=== PATIENT | female | born 1950 | race African-American/Black ===

== ENCOUNTER 2021-06-15 12:10 | Emergency (ER) | payer OTHER, SELFPAY ==
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
[2021-06-15 12:16] VITALS: BP 147/96; PULSE 97; RESP 18; TEMP 36.6; O2SAT 100; BMI 31.4
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
--- NOTE | 2021-06-15 14:04 | PC.NURSE ---
PT EATING SNACK, DRINKING FLUIDS, MET WITH RENAL MEDICINE PHYSICIANTHOMAS.
== END 2021-06-15 14:24 | disposition home or self-care (01) ==
PROVIDERS: Emergency Provider Emergency Medicine; PCP Internal Medicine Geriatric Medicine
DX: S20.219A Contusion of unspecified front wall of thorax, initial encounter (principal); V47.5XXA Car driver injured in collision with fixed or stationary object in traffic accident, initial encounter; W22.11XA Striking against or struck by driver side automobile airbag, initial encounter; Y93.89 Activity, other specified; Y92.481 Parking lot as the place of occurrence of the external cause; Y99.9 Unspecified external cause status
CPT/HCPCS: 71046; 99283

== ENCOUNTER 2023-03-29 13:33 | Outpatient (AMB) | payer MEDICARE, SELFPAY ==
--- NOTE | 2023-03-29 13:51 | A.OFFVIS_ITS ---
Intake Vital Signs 3 03/29/23 14:00 Height 5 ft Weight 180 lb 2 oz BMI 35.2 BP 160/76 H Blood Pressure Location Lt brachial Position Sitting Respiration 16 Pulse 73 Pulse Source Pulse Oximeter Pulse Oximetry (%) 95 Oxygen Delivery Method Room Air Intake Visit Reasons: Low back pain radiating to left leg Complaint Analyst Required: Yes Complaint Analyst Name: King [id number] Allergies aspirin Adverse Reaction (Unknown, Verified 03/29/23 13:51) itching HPI HPI Comments 2 History of Present Illness0 Details Gabby is a very pleasant 72-year-old female who presents to the office today for evaluation and management of her left lower back pain. Patient reports she has been suffering with this pain for greater than 1 year. She has a history of this pain over 10 years ago where she received steroid injections with relief. She fell approximately 1 year ago and the pain returned. Patient describes the pain as 5/10, worse with movement. She completed physical therapy approximately 2 months ago without relief of her symptoms. She has been taking nonsteroidal anti-inflammatory medications that provided minimal relief. She has tried baclofen that helped only a little bit. Her doctor recently prescribed her gabapentin but she started forgetting things after taking it so she stopped. Patient denies red flag symptoms including no loss of bowel bladder or saddle anesthesia. In terms of muscle damage condition is described as shooting, cramping, spasming, numb, throbbing, stabbing and sharp. Pain is negatively impacting patient's sleep, walking and overall functioning. She had a recent MRI, results were reviewed, as per below. Review of Systems Const All systems reviewed & are unremarkable except as noted in HPI and below Physical Exam Vital Signs: Last Vital Signs Pulse 73 03/29/23 14:00 Resp 16 03/29/23 14:00 BP 160/76 H 03/29/23 14:00 Pulse Ox 95 03/29/23 14:00 Oxygen Delivery Method Room Air 03/29/23 14:00 BMI result Body Mass Index 35.2 General: awake, alert, oriented. Answers questions appropriately. Fully engaged in examination. Skin: warm, dry, intact HEENT: Normocephalic. Hearing intact. Cardiac: External chest normal in appearance. Respiratory: No cough, audible wheezing or stridor. Abdomen: without gross distension. MS: No obvious swelling or deformities. Able to stand on bilateral tiptoes and bilateral heels.? Able to transition from sit to stand unassisted. Ambulates with bilaterally normal heel strike and toe off SLR with and without dorsiflexion positive on left Tenderness to palpation left lumbar paraspinal muscles Nontender to palpation over PSIS Alyssa positive on left Neurological: Oriented to person, place, time and situation. Thought process intact. Psychiatric: Appropriate mood and affect. Good judgment and insight. Results Reviewed Results Reviewed: Assessment & Plan Assessment & Plan (1) Lumbar radiculopathy: Code(s): M54.16 - Radiculopathy, lumbar region (2) Lumbar facet arthropathy: Code(s): M47.816 - Spondylosis without myelopathy or radiculopathy, lumbar region Plan Gabby is a very pleasant 72-year-old female who presented to the office today for evaluation and management of her left lower back pain. History, physical exam and provocative testing most consistent with left-sided lumbar radiculopathy. Patient has exhausted conservative treatment including physical therapy, NSAIDs, muscle relaxer and gabapentin. Discussed options for treatment including diagnostic interventional testing, epidural steroid injections, peripheral nerve stimulation with Sprint, RFA and more permanent neuromodulation. Will schedule patient for fluoroscopy guided left L4 L5 transforaminal epidural steroid injection with local anesthetic. All questions and concerns have been answered and patient agrees with the plan. Follow up after injections and sooner if needed. Coding Level of Care Code New Pt Level 4 (78629) Diagnoses Lumbar radiculopathy M54.16 Lumbar facet arthropathy M47.816
[2023-03-29 14:00] VITALS: BP 160/76; PULSE 73; RESP 16; O2SAT 95; BMI 35.2
== END 2023-03-29 14:10 | disposition home or self-care (01) ==
PROVIDERS: PCP Internal Medicine Geriatric Medicine; Visit Provider Registered Nurse Emergency
DX: M54.16 Radiculopathy, lumbar region (principal); M47.816 Spondylosis without myelopathy or radiculopathy, lumbar region
CPT/HCPCS: 99204

== ENCOUNTER → 2023-03-29 13:33 | Outpatient (BNVA) | payer MEDICARE, SELFPAY | PROVIDERS: PCP Internal Medicine Geriatric Medicine; Visit Provider Registered Nurse Emergency ==

== ENCOUNTER 2023-04-23 06:06 | Outpatient (REF) | payer MEDICARE, SELFPAY ==
--- NOTE | ~2023-04-23 | FL_ITS ---
EXAMINATION: XR FLUOROSCOPY WITH IMAGES CLINICAL INFORMATION: Radiculopathy, lumbar region. COMPARISON: None available. TECHNIQUE: Fluoroscopy Supervised By: Dr. Christopher Oglesby. Fluoroscopy Time: 0.3 minutes. Cumulative Dose: 8.5 mGy. DAP: 0.147 Gycm2. Images: 1. FINDINGS: Image demonstrates needle placement and contrast injection adjacent to the left lateral L4 vertebrae FL/FL guidance in treatment room IMPRESSION: Fluoroscopy guidance for pain management procedure
== END 2023-04-23 06:07 | disposition home or self-care (01) ==
LOC: CF 06:06
PROVIDERS: Visit Provider Anesthesiology
DX: M54.16 Radiculopathy, lumbar region (principal); M47.816 Spondylosis without myelopathy or radiculopathy, lumbar region
CPT/HCPCS: 64483; J3301

== ENCOUNTER 2023-04-23 10:41 | Outpatient (AMB) | payer MEDICARE, SELFPAY ==
[2023-04-23 10:47] VITALS: BP 106/84; BP 116/82; PULSE 54; PULSE 75; RESP 14; O2SAT 96; O2SAT 99; BMI 35.2
--- NOTE | 2023-04-23 10:47 | MHC.OFFVIS ---
Intake Vital Signs 04/23/23 10:47 04/23/23 10:47 Height 5 ft 5 ft Weight 180 lb 180 lb BMI 35.2 35.2 BP 106/84 116/82 Blood Pressure Location Lt brachial Lt brachial Position Sitting Sitting Respiration 14 14 Pulse 54 75 Pulse Source Pulse Oximeter Pulse Oximeter Pulse Oximetry (%) 96 99 Oxygen Delivery Method Room Air Room Air Comment pre-op post-op Intake Visit Reasons: LEFT L4, L5 TFESI Allergies aspirin Adverse Reaction (Unknown, Verified 04/23/23 10:48) itching Physical Exam Vital Signs: Last Vital Signs Pulse 75 04/23/23 10:47 Resp 14 04/23/23 10:47 BP 116/82 04/23/23 10:47 Pulse Ox 99 04/23/23 10:47 Oxygen Delivery Method Room Air 04/23/23 10:47 BMI result Body Mass Index 35.2 Assessment & Plan Assessment & Plan (1) Lumbar radiculopathy: Code(s): M54.16 - Radiculopathy, lumbar region Plan: Transforaminal epidural steroid injection L4-5 on the left. THE PATIENT CAME TO THE OPERATING ROOM AFTER OBTAINING INFORMED CONSENT. THE RISKS OF THE PROCEDURE WERE DELINEATED THE RISK OF BLEEDING INFECTION PERIPHERAL NERVE DAMAGE EPIDURAL HEMATOMA EPIDURAL ABSCESS AND OTHER UNSPECIFIED RISKS. THE PATIENT WAS POSITIONED PRONE ON THE OPERATING TABLE . TIME-OUT WAS OBTAINED DELINEATING CORRECT SIDE AND SITE OF THE PROCEDURE, PATIENT NAME AND DATE OF , NEED OF THE ANTIBIOTIC, RISK OF FIRE. The PATIENT PARTICIPATED IN THE TIME OUT PROCEDURE. LUMBAR AREA OF THE PATIENT WAS PREPPED WITH CHLORAPREP AND DRAPED WITH STERILE DRAPES, STERILELY DRAPED C-ARM WAS BROUGHT OVER THE OPERATING FIELD AND SQ PICTURE OF L4 VERTEBRA WAS DELINEATED ON THE SCREEN. Very extensive spurring was noted espesially on the left side of the vertebral column. C-ARM WAS TILTED 20? TO THE left SIDE AND PICTURE OF THE left PEDICLE L3 VERTEBRA WAS OBTAINED ON THE SCREEN. 3 MM BELOW THE LOWEST POINT OF THE PEDICLE PROJECTION TO THE SKIN WAS CHOSEN A STARTING POINT OF THE INJECTION. 22 GAUGE 5 IN SPINAL NEEDLE WAS INSERTED THROUGH THE SKIN AND STARTED TO ADVANCE TO THE FORAMINA IN ANTERIOR POSTERIOR, OBLIQUE AND LATERAL VIEWS IN TUNNEL VISION FASHION. Multiple spurs made the advancement OF THE NEEDLE very difficult. WHEN THE NEEDLE ON THE AP VIEW REACHED THE SILHOUETTE OF THE SPINAL COLUMN INJECTION OF THE CONTRAST PERFORMED DELINEATING ANTERIOR EPIDURAL SPREAD OF THE CONTRAST. AFTER THAT TREATMENT SOLUTION CONTAINING 3 ML OF PRESERVATIVE-FREE LIDOCAINE 1% MIXED WITH KENALOG 40 MG WAS INJECTED INTO THE NEEDLE. UPON COMPLETION OF THE INJECTION THE NEEDLE WAS REMOVED AND STERILE DRESSING WAS APPLIED. PATIENT TOLERATED PROCEDURE WELL SHE WAS TAKEN OUTSIDE OF THE OPERATING ROOM TO PACU WHERE SHE RECOVERED UNEVENTFULLY. SHE WENT HOME WITHOUT IMMEDIATE COMPLICATIONS. (2) Lumbar facet arthropathy: Code(s): M47.816 - Spondylosis without myelopathy or radiculopathy, lumbar region Plan Gabby is a very pleasant 72-year-old female who presented to the office today for evaluation and management of her left lower back pain. History, physical exam and provocative testing most consistent with left-sided lumbar radiculopathy. Patient has exhausted conservative treatment including physical therapy, NSAIDs, muscle relaxer and gabapentin. Discussed options for treatment including diagnostic interventional testing, epidural steroid injections, peripheral nerve stimulation with Sprint, RFA and more permanent neuromodulation. Will schedule patient for fluoroscopy guided left L4 L5 transforaminal epidural steroid injection with local anesthetic. All questions and concerns have been answered and patient agrees with the plan. Follow up after injections and sooner if needed. Orders: Orders FL guidance in treatment room Today M54.16 - Radiculopathy, lumbar region Coding Level of Care Code Procedure Only Diagnoses Lumbar radiculopathy M54.16 Lumbar facet arthropathy M47.816
== END 2023-04-23 11:22 | disposition home or self-care (01) ==
LOC: HO.PMCPRC 10:41
PROVIDERS: PCP Internal Medicine Geriatric Medicine; Visit Provider Anesthesiology
DX: M54.16 Radiculopathy, lumbar region (principal)
CPT/HCPCS: 64483

== ENCOUNTER 2023-05-21 09:59 | Outpatient (AMB) | payer MEDICARE, SELFPAY ==
[2023-05-21 10:09] VITALS: BP 127/60; PULSE 85; RESP 16; O2SAT 98; BMI 34.1
--- NOTE | 2023-05-21 10:09 | A.OFFVIS_ITS ---
Intake Vital Signs 3 05/21/23 10:09 Height 5 ft Weight 174 lb 8 oz BMI 34.1 BP 127/60 Blood Pressure Location Lt brachial Position Sitting Respiration 16 Pulse 85 Pulse Source Pulse Oximeter Pulse Oximetry (%) 98 Oxygen Delivery Method Room Air Intake Visit Reasons: LEFT L4, L5 TFESI/04/23/23 Allergies aspirin Adverse Reaction (Unknown, Verified 05/21/23 10:09) itching HPI HPI Comments 2 History of Present Illness0 Details Gabby presents back to the office today for follow up 1 month s/p left L4-L5 TFESI 04/23/23. Patient reports 70% pain relief with improvement in function and mobility. She is able to do things around the house like cooking and cleaning without pain increase. She does report some pain with extensive cleaning such as mopping the floor but this resolves with rest. She knows now to go slowly with certain tasks to prevent pain increase. She is sleeping well and doing activities she enjoys. Prior: Gabby is a very pleasant 72-year-old female who presents to the office today for evaluation and management of her left lower back pain. Patient reports she has been suffering with this pain for greater than 1 year. She has a history of this pain over 10 years ago where she received steroid injections with relief. She fell approximately 1 year ago and the pain returned. Patient describes the pain as 5/10, worse with movement. She completed physical therapy approximately 2 months ago without relief of her symptoms. She has been taking nonsteroidal anti-inflammatory medications that provided minimal relief. She has tried baclofen that helped only a little bit. Her doctor recently prescribed her gabapentin but she started forgetting things after taking it so she stopped. Patient denies red flag symptoms including no loss of bowel bladder or saddle anesthesia. In terms of muscle damage condition is described as shooting, cramping, spasming, numb, throbbing, stabbing and sharp. Pain is negatively impacting patient's sleep, walking and overall functioning. She had a recent MRI, results were reviewed, as per below. Review of Systems Const All systems reviewed & are unremarkable except as noted in HPI and below Physical Exam Vital Signs: Last Vital Signs Pulse 85 05/21/23 10:09 Resp 16 05/21/23 10:09 BP 127/60 05/21/23 10:09 Pulse Ox 98 05/21/23 10:09 Oxygen Delivery Method Room Air 05/21/23 10:09 BMI result Body Mass Index 34.1 General: awake, alert, oriented. Answers questions appropriately. Fully engaged in examination. Skin: warm, dry, intact HEENT: Normocephalic. Hearing intact. Cardiac: External chest normal in appearance. Respiratory: No cough, audible wheezing or stridor. Abdomen: without gross distension. MS: No obvious swelling or deformities. Able to stand on bilateral tiptoes and bilateral heels.? Able to transition from sit to stand unassisted. Ambulates with bilaterally normal heel strike and toe off Neurological: Oriented to person, place, time and situation. Thought process intact. Psychiatric: Appropriate mood and affect. Good judgment and insight. Results Reviewed Results Reviewed: Assessment & Plan Assessment & Plan (1) Lumbar radiculopathy: Code(s): M54.16 - Radiculopathy, lumbar region (2) Lumbar facet arthropathy: Code(s): M47.816 - Spondylosis without myelopathy or radiculopathy, lumbar region Porter Pierre is a very pleasant 72-year-old female who presented back to the office today for follow up s/p fluoroscopy guided left L4 L5 transforaminal epidural steroid injection with local anesthetic performed 04/23/23. Patient reports 70% relief since the injection with improvement in function and mobility. Patient advised injections may be repeated every 3 months, she will call to schedule a follow up to repeat when pain returns. All questions and concerns were answered during the visit, follow up in 2 months for repeat therapeutic injection, sooner if needed. Coding Level of Care Code Est Pt Level 3 (32766) Diagnoses Lumbar radiculopathy M54.16 Lumbar facet arthropathy M47.816
== END 2023-05-21 10:20 | disposition home or self-care (01) ==
PROVIDERS: PCP Internal Medicine Geriatric Medicine; Visit Provider Registered Nurse Emergency
DX: M54.16 Radiculopathy, lumbar region (principal); M47.816 Spondylosis without myelopathy or radiculopathy, lumbar region
CPT/HCPCS: 99213

== ENCOUNTER → 2023-05-21 09:59 | Outpatient (BNVA) | payer MEDICARE, SELFPAY | PROVIDERS: PCP Internal Medicine Geriatric Medicine; Visit Provider Registered Nurse Emergency | DX: M54.16 Radiculopathy, lumbar region (principal); M47.816 Spondylosis without myelopathy or radiculopathy, lumbar region | CPT/HCPCS: 99212 ==

== ENCOUNTER 2023-11-25 10:07 | Outpatient (REF) | payer MEDICARE, SELFPAY ==
[2023-11-25 11:21] LABS: MANUAL DIFF FLAG NO
[2023-11-25 11:43] LABS: Basophils Absolute Auto 0.1 X10*3/uL (0.0-0.2); Basophils Percent Auto 0.7 % (0-2); Eosinophils Absolute Auto 0.1 X10*3/uL (0.0-0.4); Eosinophils Percent Auto 1.1 % (0-4); Hematocrit 42.1 % (37.0-47.0); Hemoglobin 12.9 g/dl (12.0-16.0); Imm Gran Abs Auto 0.02 X10*3/uL (0.00-0.03); Imm Gran Pct Auto 0.3 % (0.0-0.4); Lymphocytes Absolute Auto 1.8 X10*3/uL (1.2-4.9); Lymphocytes Percent Auto 24.5 % (20-40); Mean Corpuscular HGB Conc 30.6 g/dl (31.0-35.0); Mean Corpuscular Hemoglobin 24.8 pg (27.0-33.0); Mean Corpuscular Volume 80.8 fL (80.0-98.0); Mean Platelet Volume 10.1 fL (9.4-12.3); Monocytes Absolute Auto 0.7 X10*3/uL (0.1-1.2); Monocytes Percent Auto 9.5 % (2-11); Neutrophils Absolute Auto 4.8 x10*3/uL (2.0-8.3); Neutrophils Percent Auto 63.9 % (45-73); Platelet Count 268 X10*3/uL (160-400); Red Blood Count 5.21 X10*6/uL (4.20-5.50); Red Cell Distribution Width 13.3 % (11.0-16.0); White Blood Count 7.5 X10*3/uL (4.8-10.8)
[2023-11-25 12:17] LABS: Alanine Aminotransferase 17 U/L (0-31); Albumin Level 4.1 g/dL (3.5-5.0); Alkaline Phosphatase 112 U/L (39-117); Anion Gap 14 (12-20); Aspartate Amino Transferase 18 U/L (5-31); Bilirubin Total 0.7 mg/dL (0.0-1.0); Blood Urea Nitrogen 17 mg/dL (9-16); Calcium 9.7 mg/dL (8.4-10.2); Carbon Dioxide 27 mmol/L (22-29); Chloride 106 mmol/L (96-108); Cholesterol 145 mg/dL (<200); Estimated Glomerular Filt Rate > 60; Glucose Random 107 mg/dL (60-115); HDL Cholesterol 60 mg/dL (>40); LDL Cholesterol Calculated 75 mg/dL (<100); Potassium 4.2 mmol/L (3.3-5.1); Sodium 143 mmol/L (135-145); Total Protein 7.2 g/dL (6.5-8.0); Triglycerides 53 mg/dL (<150)
== END 2023-11-25 10:08 | disposition home or self-care (01) ==
LOC: HO.HHCLNP 10:07
PROVIDERS: Visit Provider Internal Medicine Geriatric Medicine
DX: I20.89 Other forms of angina pectoris (principal)
CPT/HCPCS: 36415; 80053; 80061; 85025

== ENCOUNTER 2024-11-10 10:40 | Outpatient (REF) | payer MEDICARE, SELFPAY ==
[2024-11-10 11:26] LABS: MANUAL DIFF FLAG NO
[2024-11-10 11:43] LABS: Basophils Absolute Auto 0.1 X10*3/uL (0.0-0.2); Basophils Percent Auto 0.7 % (0-2); Eosinophils Absolute Auto 0.1 X10*3/uL (0.0-0.4); Hematocrit 42.6 % (37.0-47.0); Imm Gran Abs Auto 0.03 X10*3/uL (0.00-0.03); Imm Gran Pct Auto 0.4 % (0.0-0.4); Lymphocytes Absolute Auto 1.9 X10*3/uL (1.2-4.9); Lymphocytes Percent Auto 27.8 % (20-40); Mean Corpuscular HGB Conc 30.5 g/dl (31.0-35.0); Mean Corpuscular Hemoglobin 24.5 pg (27.0-33.0); Mean Corpuscular Volume 80.2 fL (80.0-98.0); Mean Platelet Volume 10.7 fL (9.4-12.3); Monocytes Absolute Auto 0.6 X10*3/uL (0.1-1.2); Monocytes Percent Auto 9.4 % (2-11); Neutrophils Absolute Auto 4.1 x10*3/uL (2.0-8.3); Neutrophils Percent Auto 60.7 % (45-73); Platelet Count 240 X10*3/uL (160-400); Red Blood Count 5.31 X10*6/uL (4.20-5.50); Red Cell Distribution Width 13.5 % (11.0-16.0); White Blood Count 6.8 X10*3/uL (4.8-10.8)
[2024-11-10 12:17] LABS: Alanine Aminotransferase 20 U/L (0-31); Alkaline Phosphatase 117 U/L (39-117); Anion Gap 12 (12-20); Aspartate Amino Transferase 26 U/L (5-31); Bilirubin Total 0.9 mg/dL (0.0-1.0); Blood Urea Nitrogen 15 mg/dL (9-16); Calcium 9.3 mg/dL (8.4-10.2); Carbon Dioxide 27 mmol/L (22-29); Chloride 107 mmol/L (96-108); Cholesterol 149 mg/dL (<200); Estimated Glomerular Filt Rate > 60; Glucose Random 122 mg/dL (60-115); HDL Cholesterol 63 mg/dL (>40); LDL Cholesterol Calculated 71 mg/dL (<100); Potassium 4.6 mmol/L (3.3-5.1); Sodium 141 mmol/L (135-145); Total Protein 7.1 g/dL (6.5-8.0); Triglycerides 75 mg/dL (<150)
--- OUTSIDE RECORDS SUMMARY | 2024-11-10 12:19 | XMS_ITS | Encounter Summary ---
Author Organization [employer] [facility] Address [address] [place] [address] [address] [place] [address] Care Team Providers Care Tutoring Assistant Name Role Phone Name, Ciro LUCAS Primary Care Provider [phone] Encounter Details Date Type Department Care Team ([facility] Contact Info) Description 12/14/2022 Abstract [facility] [address] [place] [address] [phone] Name, MD Ciro [address] [place] [address] [phone] Social History Tobacco Use Types Packs/Day Years Used Date Smoking Tobacco: Every Day Cigarettes Smokeless Tobacco: Never Alcohol Use Standard Drinks/Week Comments Yes 0 (1 standard drink = 0.6 oz pur e alcohol) rarely Depression Answer Date Recorded Patient Health Questionnaire-2 Score 0 09/18/2022 Comments Unknown Sex and Gender Information Value Date Recorded Sex Assigned at Female 05/14/2022 10:29 AM EDT Legal Sex Female 10:29 AM EDT Gender Identity Female 05/14/2022 10:29 AM EDT Sexual Orientation Choose not to disclose 2021 10:29 AM EDT documented as of this encounter Plan of Treatment Upcoming Encounters Date Type Department Care Team (Late Contact Info) Description 11/25/2024 11:30 AM EDT Telemedicine [facility] [address] [place] [address] [phone] documented as of this encounter Visit Diagnoses Not on filedocumented in this encounter Care Teams Tutoring Assistant Relationship Specialty Start Date End Date Name, MD Ciro [address] [place] [address] [phone] PCP - General Family Medicine 09/12/15 documented as of this encounter
--- OUTSIDE RECORDS SUMMARY | 2024-11-10 12:19 | XMS_ITS | Clinical Summary ---
Author Organization [employer] Address [address] [place] [address] [address] [place] [address] Care Team Providers Care Clinical Nutritionist Name Role Phone Name, Ciro LUCAS Primary Care Provider [phone] Allergies Active Allergy Reactions Criticality Noted Date Comments Aspirin Itching Medium 11/01/2015 Medications clotrimazole-bet amethasone (Lotrisone) cream Apply once a day at bedtime to the affected skin 45 g 3 3 Active cholecalciferol (D3-1000) 25 MCG (1000 UT) tablet TAKE 1 TABLET BY MOUTH EVERY DAY 90 tablet 1 4 Active albuterol 108 (90 Base) MCG/ACT inhaler Inhale 2 puffs Every 4-6 hours as needed for wheezing or shortness of breath. 18 g 11 4 06/24/20 25 Active fluticasone furoate (Arnuity Ellipta) 100 MCG/ACT inhaler Inhale 1 puff Once per day. Rinse mouth with water after use to reduce aftertaste and incidence of candidiasis. Do not swallow. 1 each 11 4 06/24/20 25 Active metFORMIN (Glucophage) 500 MG tablet TAKE 1 TABLET BY MOUTH WITH BREAKFAST AND EVENING MEAL 180 tablet 3 4 Active atorvastatin (Lipitor) 40 MG tablet TAKE 1 TABLET BY MOUTH EVERY MORNING 90 tablet 3 5 Active metoprolol tartrate (Lopressor) 25 MG tablet TOME 1 TABLETA POR VIA ORAL DOS VECES AL EVA 180 tablet 3 5 Active montelukast (Singulair) 10 MG tabletIndication s:Asthma, unspecified asthma severity, unspecified whether complicated, unspecified whether persistent TOME 1 TABLETA POR VIA ORAL TODOS [place] ACOSTARSE 90 tablet 1 5 Active omeprazole OTC (PriLOSEC OTC) 20 MG EC tabletIndication s:Non-cardiac chest pain Take 1 tablet (20 mg) by mouth before breakfast. Do not crush, chew, or split. 30 tablet 11 5 11/10/19 26 Active methocarbamol (Robaxin) 750 MG tabletIndication s:Low back pain radiating to left leg Take 1 tablet (750 mg) by mouth if needed each day for muscle spasms for up to 10 days. 30 tablet 5 11/20/19 25 Active Blood Pressure kit Use once a day 1 kit 5 Active Active Problems Problem Noted Date Diagnosed Date Arthritis 03/12/2023 Overview (03/12/2023): hands/neck Asthma 03/12/2023 Back pain 03/12/2023 Low vitamin D level 07/13/2022 Calcification of coronary artery 07/13/2022 Pulmonary nodule 07/13/2022 Overview (09/18/2022): CT 2021 showed: Intrathoracic lymph nodes calcification and calcified pulmonary nodules perhaps sequela of remote granulomatous infection. Negative Quantiferon for TB Follows with [facility] pulmonary [facility] Asymptomatic No further work up recommended Osteopenia of multiple sites 04/19/2019 Prediabetes 03/24/2019 Vitamin D deficiency 03/24/2019 Depressive disorder 03/14/2018 Constipation 07/23/2017 Low back pain radiating to left leg 07/23/2017 Hip pain 02/22/2017 Peripheral venous insufficiency 02/29/2016 Restless legs 11/01/2015 Obesity 11/01/2015 Mild intermittent asthma 11/01/2015 Osteoarthritis of knee 11/01/2015 Encounters Date Type Department Care Team Description 11/09/2024 2:45 PM EDT Office Visit [facility] [address] [place] [address] Name, MD Ciro Prediabetes (Primary Dx); Low back pain radiating to left leg; Non-cardiac chest pain; Gastroesophageal reflux disease, unspecified whether esophagitis present 11/09/2024 Travel 11/06/2024 Telephone [facility] [address] [place] [address] Ciro Banks MD CHART PREP 10/28/2024 Patient Outreach [facility] [address] [facility] [place] [address] Ciro Banks MD Pre-visit Planning ([facility] unable to reach [facility]) 09/27/2024 Refill [facility] [address] [place] [address] Ciro Banks MD Asthma, unspecified asthma severity, unspecified whether complicated, unspecified whether persistent 09/20/2024 Refill [facility] [address] [place] [address] Ciro Banks MD from Last 3 Months Immunizations Name Administration Dates Next Due Moderna Covid-19 Vaccine 12+ 09/24/2020,08/27/19 21 Pneumococcal Conjugate PCV 13 07/23/2017, 016 Pneumococcal Polysaccharide PPSV23 09/28/2021, Tdap 05/29/2016 Social History Tobacco Use Types Packs/Day Years Used Date Smoking Tobacco: Every Day Cigarettes Smokeless Tobacco: Never Tobacco Cessation:Ready to Q uit: Not Asked; Counseling Given: Not Answered Alcohol Use Standard Drinks/Week Comments Yes 0 (1 standard drink = 0.6 oz pur e alcohol) occassional Depression Answer Date Recorded Patient Health Questionnaire-9 Score 1 06/24/2024 Patient Health Questionnaire-9 Score 1 06/24/2024 Last PHQ-9: Questionnaire Data Not on file 1 08/25/2023 Housing Stability Answer Date Recorded What is your housing situation today? I have lety oconnell 06/24/[address] you li ve. Do you have problems with any of the following? None of the above 06/24/2024 Food Insecurity Answer Date Recorded Within the past 12 months, y ou worried that your food would run out before you got money to buy more: Not on file 2023 Within the past 12 months,th e food you bought just didn't last and you didn't have enough money to get more: Sometimes True 06/24/2024 Transportation Answer Date Recorded In the past 12 months, has l ack of transportation kept you from medical appts, meetings, work or from getting things needed for daily living? No 06/24/2024 Utilities Answer Date Recorded In the past 12 months, has t he electric, gas, oil or water company threatened to shut off services in your home? I am not sure 06/24/2024 Depression Answer Date Recorded Patient Health Questionnaire-2 Score 0 06/24/2024 Internet Access Answer Date Recorded Internet Access Q1 Yes 06/24/2024 Internet Access Q2 Not on file 06/24/2024 Comments Unknown Sex and Gender Information Value Date Recorded Sex Assigned at Female 05/14/2022 10:29 AM EDT Legal Sex Female 10:29 AM EDT Gender Identity Female 05/14/2022 10:29 AM EDT Sexual Orientation Choose not to disclose 2021 10:29 AM EDT Last Filed Vital Signs Vital Sign Reading Time Taken Comments Blood Pressure 141/89 11/09/2024 3:19 PM EDT Pulse 87 11/09/2024 2:58 PM EDT Temperature 36.8 ??C (98.2 ??F) 11/09/2024 2:58 PM ED T Respiratory Rate 18 11/09/2024 2:58 PM EDT Oxygen Saturation 97% 11/09/2024 2:58 PM EDT Inhaled Oxygen Concentration - - Weight 81.1 kg (178 lb 12.8 oz) 11/09/2024 2:58 PM EDT Height 157.5 cm (5' 2 ) 11/09/2024 2:58 PM EDT Body Mass Index 32.7 11/09/2024 2:58 PM EDT Plan of Treatment Upcoming Encounters Date Type Department Care Team (Late st Contact Info) Description 11/25/2024 11:30 AM EDT Telemedicine [facility] [address] [place] [address] Health Maintenance Due Date Last Done Comments CT Colonography 1950 FIT DNA/Cologuard 1950 Sigmoidoscopy 1950 Hepatitis C Screening 1968 Zoster Vaccines (1 of 2) 2000 RSV Patients and Patients Aged 60 years or older (1 - Risk 60-74 years 1-dose series) 2010 FIT 04/29/2021 04/29/2020 FOBT 04/29/2021 04/29/2020 SDOH Screening 09/19/2023 09/18/2022 COVID-19 Vaccine ( season) 2024 05/08/2021, 09/24/2020, 08/27/2020 Influenza Vaccine (#1) 2024 Mammogram 10/13/2024 10/14/2023, 10/10/2022 Alcohol/Substance Use Screening 06/24/2025 06/24/2024 Depression Screening 06/24/2025 06/24/2024, 06/24/20 24 Diabetes: Hemoglobin A1C 06/24/2025 024, 09/20/2022, 03/16/2022, Additional history exists Tobacco Screening 11/09/2025 11/09/2024 DTaP/Tdap/Td Vaccines (2 - Td or Tdap) 05/29/2026 05/29/2016 Lipid Panel 11/24/2028 11/10/2024, 051 09/2023, 09/20/2022, Additional history exists Colonoscopy 04/27/2032 04/27/2022 Colorectal Cancer Screening 04/27/2032 Pneumococcal Vaccine: 50+ Years Completed 09/28/2021, 07/23/2017, 09/12/2015, Additional history exists HIB Vaccines Aged Out No longer eligi ble based on patient's age to complete this topic HPV Vaccines Aged Out No longer eligi ble based on patient's age to complete this topic Hepatitis A Vaccines Aged Out No long er eligible based on patient's age to complete this topic Hepatitis B Vaccines Aged Out No long er eligible based on patient's age to complete this topic IPV Vaccines Aged Out No longer eligi ble based on patient's age to complete this topic Meningococcal Vaccine Aged Out No neda bradley eligible based on patient's age to complete this topic RSV under 20 months Aged Out No longe r eligible based on patient's age to complete this topic Rotavirus Vaccines Aged Out No longer eligible based on patient's age to complete this topic Procedures Procedure Name Priority Date/Time Associated Diagnosis Comments LIPID PANEL, STANDARD Routine 11/10/2024 10:42 AM EDT Prediabetes COMPREHENSIVE METABOLIC PANEL Routine 11/10/2024 10:42 AM EDT Prediabetes CBC WITH AUTO DIFFERENTIAL Routine 11/10/2024 10:42 AM EDT Prediabetes POCT GLYCATED HEMOGLOBIN, TOTAL Routine 06/24/2024 2:19 PM EST Prediabetes HM MAMMOGRAPHY Routine 10/14/2023 HM COLONOSCOPY Routine 04/27/2022 from Last 3 Months or Most Recently Relevant to Health Maintenance Results * (ABNORMAL) CBC auto differential (11/10/2024 10:42 AM EDT) White Blood Count 6.8 4.8 - 10.8 X10*3/uL [facility] Red Blood Count 5.31 4.20 - 5.50 X10*6/uL [facility] Hemoglobin 13.0 12.0 - 16.0 g/dl [facility] Hematocrit 42.6 37.0 - 47.0 % [facility] Mean Corpuscular Volume 80.2 80.0 - 98.0 fL [facility] Mean Corpuscular Hemoglobin 24.5(L) 27.0 - 33.0 pg [facility] Mean Corpuscular HGB Conc 30.5(L) 31.0 - 35.0 g/dl [facility] Red Cell Distribution Width 13.5 11.0 - 16.0 % [facility] Platelet Count 240 160 - 400 X10*3/uL [facility] Mean Platelet Volume 10.7 9.4 - 12.3 fL [facility] Neutrophils Percent Auto 60.7 45 - 73 % [facility] Imm Gran Pct Auto 0.4 0.0 - 0.4 % [facility] Lymphocytes Percent Auto 27.8 20 - 40 % [facility] Monocytes Percent Auto 9.4 2 - 11 % [facility] Eosinophils Percent Auto 1.0 0 - 4 % [facility] Basophils Percent Auto 0.7 0 - 2 % [facility] NRBC Pct Auto 0.0 0.0 - 0.2 /100WBC [facility] Neutrophils Absolute Auto 4.1 2.0 - 8.3 x10*3/uL [facility] Imm Gran Abs Auto 0.03 0.00 - 0.03 X10*3/uL [facility] Lymphocytes Absolute Auto 1.9 1.2 - 4.9 X10*3/uL [facility] Monocytes Absolute Auto 0.6 0.1 - 1.2 X10*3/uL [facility] Eosinophils Absolute Auto 0.1 0.0 - 0.4 X10*3/uL [facility] Basophils Absolute Auto 0.1 0.0 - 0.2 X10*3/uL [facility] NRBC Abs Auto 0.000 0.0 - 0.012 X10*3/uL [facility] Blood Venous blood specimen / Unknown 11/10/2024 10:42 AM EDT 11/10/2024 11:22 AM EDT us Ciro Name MD LAB BLOOD ORDERABLES Final Resul t [facility] [address] [place] [phone] * Lipid Panel, Standard (11/10/2024 10:42 AM EDT) Triglycerides 75 <150 mg/dL [facility] Comment:Desirable Triglyceri de: less than 150 mg/dLBorderline High Triglyceride 150-199 mg/dLHigh Triglyceride: 200-499 mg/dLVery High Triglyceride: greater than or equal to 5OO mg/dL Cholesterol 149 <200 mg/dL [facility] Comment:Desirable Cholestero l: less than 200 mg/dLBorderline High Cholesterol: 200-239 mg/dLHigh Cholesterol: greater than 239 mg/dL LDL Cholesterol Calculated 71 <100 mg/dL [facility] Comment:Desirable LDL: less than 100 mg/dLNear Optimal/Above Optimal LDL: 110- 129 mg/dLBorderline High LDL: 130-159 mg/dLHigh LDL: 160-189 mg/dLVery High LDL: greater than or equal to 190 mg/dL HDL Cholesterol 63 >40 mg/dL [facility] Comment:Desirable HDL: great er than 40 mg/dL Note: This HDL assay may give artificially low results in patients with liver disease. Blood Venous blood specimen / Unknown 11/10/2024 10:42 AM EDT 11/10/2024 11:22 AM EDT us Ciro Name MD LAB BLOOD ORDERABLES Final Resul t [facility] [address] [place] [address] [phone] * (ABNORMAL) Comprehensive Metabolic Panel (11/10/2024 10:42 AM EDT) Sodium 141 135 - 145 mmol/L [facility] Potassium 4.6 3.3 - 5.1 mmol/L [facility] Chloride 107 96 - 108 mmol/L [facility] Carbon Dioxide 27 22 - 29 mmol/L [facility] Anion Gap 12 12 - 20 [facility] Urea Nitrogen (BUN) 15 9 - 16 mg/dL [facility] Creatinine, Serum 0.77 0.5 - 1.4 mg/dL [facility] Estimated Glomerular Filt Rate >60 [facility] Comment:Chronic Kidney Disea se: Estimated GFR < 60 mL/min/1.71q4Iyrnby Kidney Disease: Estimated GFR < 15 mL/min/1.73m2 Glucose 122(H) 60 - 115 mg/dL [facility] Calcium 9.3 8.4 - 10.2 mg/dL [facility] Bilirubin, Total 0.9 0.0 - 1.0 mg/dL [facility] Aspartate Amino Transferase 26 5 - 31 U/L [facility] Alanine Aminotransferase 20 0 - 31 U/L [facility] Total Protein 7.1 6.5 - 8.0 g/dL [facility] Albumin Level 4.0 3.5 - 5.0 g/dL [facility] Alkaline Phosphatase 117 39 - 117 U/L [facility] Blood Venous blood specimen / Unknown 11/10/2024 10:42 AM EDT 11/10/2024 11:22 AM EDT us Ciro Banks MD LAB BLOOD ORDERABLES Final Resul t [facility] [address] [place] [phone] * (ABNORMAL) POCT HGB A1C (06/24/2024 2:19 PM EST) Hemoglobin A1C 6.1(A) 4.0 - 6.0 % QC Media Lot # [id number] Lot# Expiration Date [id number] Blood 06/24/2024 2:19 PM EST Result [facility] Ciro Banks MD POINT OF CARE TEST ENTER/EDIT OR DERABLES Final Result * (ABNORMAL) Mammography (10/14/2023) Mammogram BIRADS 2 Normal, Abnormal, BIRADS 1 , BIRADS 2 Anatomical Region Laterality Modality Other Result [facility] us Ciro Banks MD HEALTH MAINTENANCE Final Result * Colonoscopy (04/27/2022) Colonoscopy performed Comment:cologuard negative Result [facility] Provider HEALTH MAINTENANCE Final Result from Last 3 Months or Most Recently Relevant to Health Maintenance Insurance [facility] MEDICARE ADVANTAGE [facility] FULL Care Teams Clinical Nutritionist Relationship Specialty Start Date End Date Name, MD Ciro [address] [place] [phone] PCP - General Family Medicine 09/12/15
--- OUTSIDE RECORDS SUMMARY | 2024-11-10 12:19 | XMS_ITS | Encounter Summary ---
Author Organization [employer] Address [address] [facility] [address] [place] [address] Care Team Providers Care Leather Stripping Machine Operator Name Role Phone Name, Ciro LUCAS Primary Care Provider [phone] Reason for Visit * Reason Onset Date Comments CHART PREP 11/06/2024 Encounter Details Date Type Department Care Team ([facility] st Contact Info) Description 11/06/2024 Telephone [facility] [address] [place] [address] Name, MD Ciro [address] [place], [place] [phone] CHART PREP Social History Tobacco Use Types Packs/Day Years [...] AM EDT documented as of this encounter Miscellaneous Notes * Telephone Encounter - Sarah Hughes [place] - 11/06/2024 11:46 AM EDT Chart Prep Labs: not applicable Images: not applicable Referrals: not applicable Vaccines due: yes RSV Zoster Screenings: mammogram Overdue care gaps: SDOH, Oral health screening, and Disability screen documented in this encounter Plan of Treatment Upcoming Encounters Date Type Department Care Team (Late st Contact Info) Description 11/25/2024 11:30 AM EDT Telemedicine [facility] [address] [place] [address] documented as of this encounter Visit Diagnoses Not on filedocumented in this encounter Additional Health Concerns Assessment Noted Time PHQ-9 Depression Total Score: 1 06/24/20 24 2:43 PM EST documented as of this encounter Care Teams Leather Stripping Machine Operator Relationship Specialty Start Date End Date Name, MD Ciro [address] [place] [address] PCP - General Family Medicine 09/12/15 documented as of this encounter
--- OUTSIDE RECORDS SUMMARY | 2024-11-10 12:19 | XMS_ITS | Clinical Summary ---
Author Organization [facility] Address [address] [place] [phone] Phone Care Team Providers Care Metal Riveting Machine Operator Name Role Phone Name, Ciro LUCAS Primary Care Provider [phone] Allergies Active Allergy Reactions Criticality Noted Date Comments Aspirin Hives 05/25/2024 Medications methocarbamoL (ROBAXIN) 750 mg tablet Take 1 tablet (750 mg total) by mouth 1 (one) time each day in the evening for 15 days. 15 each 05/25/2024 Active Active Problems No known active problems Surgical History Surgery Date Site/Laterality Comments TUBAL LIGATION PROCEDURE: HISTORICAL TUBAL LIGATION Medical History Medical History Date Comments Osteoarthrosis, unspecified whether generalized or localized, lower leg 04/05/2015 DX:Osteoarthrosis, unspecified whether generalized or localized, lower leg Family History Medical History Relation Name Comments Autoimmune disease Neg Hx Breast cancer Neg Hx Colon cancer Neg Hx Coronary artery disease Neg Hx Diabetes Neg Hx Heart attack Neg Hx Heart failure Neg Hx Hyperlipidemia Neg Hx Hypertension Neg Hx Mental illness Neg Hx Prostate cancer Neg Hx Sleep apnea Neg Hx Thyroid disease Neg Hx Relation Name Status Comments Brother 1 Alive Brother 2 Alive Brother 3 Alive Daughter 1 Alive Daughter 2 Alive Father AIDS Mother GSW Sister 1 Alive DM Sister 2 Alive Sister 3 Alive Son Alive Social History Tobacco Use Types Packs/Day Years Used Date Smoking Tobacco: Some Days Smokeless Tobacco: Never Alcohol Use Standard Drinks/Week Comments Yes 0 (1 standard drink = 0.6 oz pur e alcohol) Comments Unknown Sex and Gender Information Value Date Recorded Sex Assigned at Female 05/25/2024 2:01 PM EST Legal Sex Female 9:05 AM EST Gender Identity Female 05/25/2024 2:01 PM EST Sexual Orientation Straight 05/25/2024 2: 01 PM EST Obstetrics History Last Filed Vital Signs Vital Sign Reading Time Taken Comments Blood Pressure 124/60 05/25/2024 12:10 PM EST Pulse 95 05/25/2024 12:10 PM EST Temperature 36.7 ??C (98 ??F) 05/25/2024 12:10 PM EST Respiratory Rate 16 05/25/2024 12:10 PM EST Oxygen Saturation 100% 05/25/2024 12:10 PM EST Inhaled Oxygen Concentration - - Weight 79.4 kg (175 lb) 05/25/2024 12:10 PM EST Height 157.5 cm (5' 2 ) 05/25/2024 12:10 PM EST Body Mass Index 32.01 05/25/2024 12:10 PM EST Plan of Treatment Health Maintenance Due Date Last Done Comments Zoster Vaccines (1 of 2) 2000 RSV Immunization Adult Patients (1 - Risk 60-74 years 1-dose series) 2010 Colorectal Cancer Screening: Colonoscopy 06/24/2022 Depression Screening 06/24/2022 Falls Risk Assessment 06/24/2022 Medicare Annual Wellness Visit 06/24/2022 Social Influencers of Health Screening 06/24/2022 COVID-19 Vaccine ( season) 2024 05/08/2021, 09/24/2020, 08/27/2020 Influenza Vaccine (Season Ended) 2025 Breast Cancer Screening 10/13/2025 10/14/19 24, 10/11/2022, 10/06/2021, Additional history exists DTaP,Tdap,and Td Vaccines (2 - Td or Tdap) 05/29/2026 05/29/2016 Cholesterol Screening (Lipid Panel) 11/24/2028 11/25/2023, 04/27/2020, 04/27/2020, Additional history exists Osteoporosis Screening (Bone Density Screening) 04/11/2031 04/11/2021, 04/06/2019 Hepatitis C Screening Completed 03/24/2019, 019 Pneumococcal Vaccine: 50+ Years Completed 09/28/2021, 07/23/2017, [...] on patient's age to complete this topic MMR Vaccines Aged Out No longer eligi ble based on patient's age to complete this topic Meningococcal ACWY Vaccine Aged Out N o longer eligible based on patient's age to complete this topic Meningococcal B Vaccine Aged Out No l onger eligible based on patient's age to complete this topic RSV Immunization Patients Under 20 months Aged Out No longer eligible based on patient's age to complete this topic Varicella Vaccines Aged Out No longer eligible based on patient's age to complete this topic Procedures Procedure Name Priority Date/Time Associated Diagnosis Comments [facility] SCREENING DIGITAL Routine 10/14/2023 4:30 PM EDT Encounter for screening mammogram for malignant neoplasm of breast [facility] DEXA AXIAL SKELETON Routine 04/11/2021 2:31 PM EDT Asymptomatic menopausal state from Last 3 Months or Most Recently Relevant to Health Maintenance Results * [facility] SCREENING DIGITAL (10/14/2023 4:30 PM EDT) Anatomical Region Laterality Modality Mammography 10/14/2023 10:5 8 AM EDT Narrative 10/14/2023 4:30 PM EDT [facility] Diagnostic Imaging Department [address] [place] [id number] Patient: ??GABBY SCANLON ?/Age/Sex: 1950 - 73 - F Unit#: ??[id number] ? Location/Status: ??SPDIMAM/REG CLI ? Mnemonic/Ordering Site: ??DIGSC/SPMAM Ordering Physician: ??NAME,CIRO LUCAS [facility] Screening Digital - 10/14/23 - 1137 Report Status:Signed EXAM: [facility] Screening Digital EXAM DATE AND TIME: 10/14/2023 11:37 AM HISTORY: ??Screening. COMPARISON: ??10/10/22, 10/06/21, 06/03/20 TECHNIQUE: Bilateral digital breast tomosynthesis was performed in the CC and MLO projections. Computer aided detection with Soapbox 3D 3.1 was employed. TISSUE DENSITY: b. There are scattered areas of fibroglandular density. FINDINGS: No suspicious masses, grouped microcalcifications, or areas of architectural distortion are seen. Benign rim and secretory calcifications are again seen. Vascular calcification is present. The skin is unremarkable. IMPRESSION: Stable mammographic appearance of the breasts. ??No evidence of malignancy is seen. A negative mammogram in the presence of a clinically suspicious palpable abnormality does not preclude the possibility of malignancy or alter the indications for biopsy. BI-RADS: ??Category 2: Benign RECOMMENDATION(S): 1: Routine screening mammogram BILATERAL in 1 year. Dictating Physician: ??HUONG HOGUE MD Electronically Signed by: ??HUONG HOGUE MD Dic Date/Time: ??10/14/23 1629 Sign date/Time: ??10/14/23 1630 Procedure Note Huong Hogue MD - 03/02/2024 [facility] Diagnostic Imaging Department [address] [place], [place] [id number] Patient: GABBY SCANLON /Age/Sex: 1950 - 73 - F Unit#: [id number] Location/Status: SPDIMAM/REG CLI [facility] Order[facility] Physician: CIRO INIGUEZ MD [facility] Screening Digital - 10/14/23 - 1137 Report Status:Signed EXAM: [facility] Screening Digital EXAM DATE AND TIME: 10/14/2023 11:37 AM HISTORY: Screening. COMPARISON: 10/10/22, 10/06/21, 06/03/20 TECHNIQUE: Bilateral digital breast tomosynthesis was performed in the CCand MLO projections. Computer aided detection with Soapbox 3D 3.1was employed. TISSUE DENSITY: b. There are scattered areas of fibroglandular density. FINDINGS: No suspicious masses, grouped microcalcifications, or areas ofarchitectural distortion are seen. Benign rim and secretory calcifications are againseen. Vascular calcification is present. The skin is unremarkable. IMPRESSION: Stable mammographic appearance of the breasts. No evidence of malignancyis seen. A negative mammogram in the presence of a clinically suspicious palpable abnormality does not preclude the possibility of malignancy or alter the indications for biopsy. BI-RADS: Category 2: Benign RECOMMENDATION(S): 1: Routine screening mammogram BILATERAL in 1 year. Dictating Physician: HUONG HOGUE MD Electronically Signed by: HUONG HOGUE MD Dic Date/Time: 10/14/23 1629 Sign date/Time: 10/14/23 1630 Ciro Iniguez MD IMG BI PROCEDURES Final Result * [facility] DEXA AXIAL SKELETON (04/11/2021 2:31 PM EDT) Anatomical Region Laterality Modality Mammography 04/11/2021 10:1 1 AM EDT Narrative 04/11/2021 2:31 PM EDT [facility] Diagnostic Imaging Department [address] [place] [id number] Patient: ??REGINALDOGABBY ?/Age/Sex: 1950 - 70 - F Unit#: ??[id number] ? Location/Status: ??SPDIMAM/REG CLI ? Mnemonic/Ordering Site: ??MAMDEXAAX/SPMAM Ordering Physician: ??TEA CHILDRESS TELEPHONE DIRECTORY DISTRIBUTOR DRIVER [facility] Dexa Axial Skeleton - 04/11/21 - 1111 HISTORY: Post menopausal woman with hormone depletion for screening bone densitometry. The patient is on calcium supplement with Vitamin D. TECHNIQUE: Bone densitometry is performed utilizing dual energy x-ray absorptiometry (DEXA) in the PenteoSurround unit. The lumbar spine is evaluated in the AP projection and L1 through L2 are utilized. The proximal femora are evaluated in the AP projection bilaterally. FINDINGS: AP spine: Bone mineral density: 1.058 gm/cm2 T-score: -0.9 Z-score: 0.3 Dual Femur (mean): Bone mineral density: 0.986 gm/cm2 T-score: -0.2 Z-score: 1.0 IMPRESSION: Normal bone mineralization in the lumbar spine. Normal bone mineralization in the bilateral hips. Comparison with prior examination 04/06/2019, there is increased bone mineralization within the lumbar spine and increased bone mineralization within the left proximal femur and increased bone mineralization in the right proximal femur. [id number] A report detailing these results has been enclosed. Dictating Physician: ??ROGER KING MD Electronically Signed by: ??ROGER KING MD Dic Date/Time: ??04/11/21 1429 Sign date/Time: ??04/11/21 1431 Procedure Note Roger King MD - 07/11/2022 [facility] Diagnostic Imaging Department [address] [place] [address] Patient: GABBY SCANLON D.O.B./Age/Sex: 1950 - 70 - F Unit#: [id number] [facility] CLI Mnemonic/Ordering Site: [facility] Ordering Physician: TEA CHILDRESS NP [facility] Dexa Axial Skeleton - 04/11/21 - 1111 HISTORY: Post menopausal woman with hormone depletion for screening bone densitometry. The patient is on calcium supplement with Vitamin D. TECHNIQUE: Bone densitometry is performed utilizing dual energy x-ray absorptiometry (DEXA) in the PenteoSurround unit. The lumbar spine isevaluated in the AP projection and L1 through L2 are utilized. The proximal femoraare evaluated in the AP projection bilaterally. FINDINGS: AP spine: Bone mineral density: 1.058 gm/cm2 T-score: -0.9 Z-score: 0.3 Dual Femur (mean): Bone mineral density: 0.986 gm/cm2 T-score: -0.2 Z-score: 1.0 IMPRESSION: Normal bone mineralization in the lumbar spine. Normal bone mineralization in the bilateral hips. Comparison with prior examination 04/06/2019, there is increased bone mineralization within the lumbar spine and increased bone mineralizationwithin the left proximal femur and increased bone mineralization in the rightproximal femur. [id number] A report detailing these results has been enclosed. Dictating Physician: ROGER KING MD Electronically Signed by: ROGER KING MD Dic Date/Time: 04/11/21 1429 Sign date/Time: 04/11/21 1431 Tea Childress NP IMG BI PROCEDURES Final Result from Last 3 Months or Most Recently Relevant to Health Maintenance Insurance [employer] MED[employer]ARE Care Teams Metal Riveting Machine Operator Relationship Specialty Start Date End Date Name, MD [address] [place], [place] PCP - General Internal Medicine 12/18/11
--- OUTSIDE RECORDS SUMMARY | 2024-11-10 12:19 | XMS_ITS | Encounter Summary ---
Author Organization [employer] Address [address] [facility] [address] [place] [address] Care Team Providers Care Asp Web Developer Name Role Phone Name, Ciro LUCAS Primary Care Provider [phone] Encounter Details Date Type Department Care Team (Latest Contact Info) Description 11/09/2024 Travel Social History Tobacco Use Types Packs/Day Years [...] Info) Description 11/25/2024 11:30 AM EDT Telemedicine [facility] [address] [place] [address] documented as of this encounter Visit Diagnoses Not on filedocumented in this encounter Additional Health Concerns Assessment Noted Time PHQ-9 Depression Total Score: 1 06/24/20 24 2:43 PM EST documented as of this encounter Care Teams Asp Web Developer Relationship Specialty Start Date End Date Name, MD Ciro [address] [place] [address] PCP - General Family Medicine 09/12/15 documented as of this encounter
--- OUTSIDE RECORDS SUMMARY | 2024-11-10 12:19 | XMS_ITS | Encounter Summary ---
Author Organization [employer] Address [address] [facility] [address] [place] [address] Care Team Providers Care Relocation Commissioner Name Role Phone Name, Ciro LUCAS Primary Care Provider [phone] Reason for Visit * Reason Onset Date Comments Results 02/11/2023 Encounter Details Date Type Department Care Team ([facility] st Contact Info) Description 02/11/2023 Telephone [facility] [address] [place], [place] [phone] Name, MD Ciro [address] [place] [address] Results Social History Tobacco Use Types Packs/Day Years Used Date Smoking Tobacco: Every Day Cigarettes Smokeless Tobacco: Never Alcohol Use Standard Drinks/Week Comments Yes 0 (1 standard drink = 0.6 oz pur e alcohol) occassional Depression Answer Date Recorded Patient Health Questionnaire-2 Score 0 09/18/2022 Comments Unknown Sex and Gender Information Value Date Recorded Sex Assigned at Female 05/14/2022 10:29 AM EDT Legal Sex Female 10:29 AM EDT Gender Identity Female 05/14/2022 10:29 AM EDT Sexual Orientation Choose not to disclose 2021 10:29 AM EDT documented as of this encounter Miscellaneous Notes * Telephone Encounter - Krystle Hughes RN - 02/19/2023 1:47 PM EDT Placed call to pt regarding message below. Pt informed of MRI results and provider POC. Pt requested to wait until next appt with PCP to discuss further options but stated prednisone did help with the pain and is requesting a refill in the interim until pt sees PCP. Pt informed message would be sent to PCP and would be informed of plan. * Telephone Encounter - Krystle Hughes RN - 02/12/2023 10:52 AM EDT MRI results scanned into pt chart from [facility]. Please review and advise as PCP if off. * Telephone Encounter - Sarika Mayen - 02/11/2023 11:05 AM EDT Tc from pt requesting results on MRI. Please contact pt at [phone] (Lebanese) documented in this encounter Plan of Treatment Upcoming Encounters Date Type Department Care Team (Late st Contact Info) Description 11/25/2024 11:30 AM EDT Telemedicine [facility] [address] [place] [address] documented as of this encounter Visit Diagnoses Not on filedocumented in this encounter Care Teams Relocation Commissioner Relationship Specialty Start Date End Date Name, MD Ciro [address] [place] [address] PCP - General Family Medicine 09/12/15 documented as of this encounter
--- OUTSIDE RECORDS SUMMARY | 2024-11-10 12:19 | XMS_ITS | Encounter Summary ---
Author Organization [employer] Address [address] [facility] 7[address] [place] [address] Care Team Providers Care Medical Office Scheduler Name Role Phone Name, Ciro LUCAS Primary Care Provider [phone] Reason for Visit * Reason Comments Follow-up Encounter Details Date Type Department Care Team ([facility] st Contact Info) Description 11/09/2024 2:45 PM EDT Office Visit [facility] MEDICINE [address] [place] [address] Name, MD Ciro [address] [place], [place] [phone] Prediabetes (Primary Dx); Low back pain radiating to left leg; Non-cardiac chest pain; Gastroesophageal reflux disease, unspecified whether esophagitis present Social History Tobacco Use Types Packs/Day Years [...] your housing situation today? I have lety ocnonell 06/24/[address] you li [...] AM EDT documented as of this encounter Last Filed Vital Signs Vital Sign Reading [...] Mass Index 32.7 11/09/2024 2:58 PM EDT documented in this encounter Progress Notes * Ciro Banks MD - 11/09/2024 2:45 PM EDT Subjective Patient ID: Gabby Scanlon is a 74 y.o. female who presents for Follow-up. The patient comes for a follow-up visit. She is accompanied by a friend. Her main complaint today is low back pain with radiation to the left leg. This is a chronic problem for her. She has been evaluated with MRI of the lumbar spine in the past, she has done physical therapy, she has seen pain clinic and had injection that did not work, she cannot use NSAIDs and she is allergic to aspirin. She does not have any leg weakness. No associated GI or complaints. She continues smoking cigarettes. She denies significant cough or shortness of breath. She smoking 1 or 2 cigarettes/day. She continues to have occasional chest discomfort associated with symptoms of heartburn. She had negative cardiac workup including echo and nuclear stress test last year. She does not have any exertional chest discomfort. She can walk for a couple of blocks as long as the low back is not hurting too much. Review of Systems Constitutional: Negative for chills and fever. HENT: Negative for sore throat. Respiratory: Negative for cough, shortness of breath and wheezing. Cardiovascular: Negative for chest pain, palpitations and leg swelling. Gastrointestinal: Negative for abdominal pain. Musculoskeletal: Positive for back pain. Visit Vitals BP (!) 141/89 Pulse 87 Temp 98.2 ??F (36.8 ??C) (Temporal) Resp 18 Ht 5' 2 (1.575 m) Wt 178 lb 12.8 oz (81.1 kg) SpO2 97% BMI 32.70 kg/m?? Smoking Status Every Day BSA 1.88 m?? Objective Physical Exam Constitutional: Appearance: Normal appearance. Cardiovascular: Rate and Rhythm: Normal rate and regular rhythm. Heart sounds: No murmur heard. No gallop. Pulmonary: Effort: Pulmonary effort is normal. No respiratory distress. Breath sounds: Normal breath sounds. No wheezing. Musculoskeletal: Lumbar back: Spasms and tenderness present. Right lower leg: No edema. Left lower leg: No edema. Neurological: General: No focal deficit present. Mental Status: She is alert. Motor: No weakness. Assessment/Plan Diagnoses and all orders for this visit: Prediabetes Comments: I recommended to avoid sweets and soda, continue metformin for diabetes prevention, continue statinfor primary prevention of cardiovascular disease, she is encouraged to quit smoking, walk after meals. Check fasting blood work listed below. BP slightly elevated today. She will continue current dose of metoprolol. I will have check BP at home and BP rechecked at a televisit with the nurses in a couple of weeks. Orders: - CBC auto differential; Future - Comprehensive Metabolic Panel; Future - Lipid Panel, Standard; Future Low back pain radiating to left leg Comments: I recommended acetaminophen as needed, methocarbamol to be used for severe pain if needed and we discussed the sedative side effects of the medication. She is not interested in referral to physical therapy or pain clinic. She is interested in acupuncture and I gave her the information of the [facility] acupuncture clinic. Orders: - methocarbamol (Robaxin) 750 MG tablet; Take 1 tablet (750 mg) by mouth if needed each day for muscle spasms for up to 10 days. Non-cardiac chest pain Comments: Noncardiac chest pain. Likely related to GERD. I recommended trial of daily PPI. Orders: - omeprazole OTC (PriLOSEC OTC) 20 MG EC tablet; Take 1 tablet (20 mg) by mouth before breakfast. Do not crush, chew, or split. Gastroesophageal reflux disease, unspecified whether esophagitis present Other orders - Blood Pressure kit; Use once a day documented in this encounter Plan of Treatment Upcoming Encounters Date Type Department Care Team (Late st Contact Info) Description 11/25/2024 11:30 AM EDT Telemedicine [facility] MEDICINE [address] [place] [address] documented as of this encounter Procedures Procedure Name Priority Date/Time Associated Diagnosis Comments CBC WITH AUTO DIFFERENTIAL Routine 11/10/2024 10:42 AM EDT Prediabetes LIPID PANEL, STANDARD Routine 11/10/2024 10:42 AM EDT Prediabetes COMPREHENSIVE METABOLIC PANEL Routine 11/10/2024 10:42 AM EDT Prediabetes documented in this encounter Results * Lipid Panel, Standard (11/10/2024 10:42 AM EDT) Triglycerides 75 <150 mg/dL [facility] Comment:Desirable Triglyceri de: less than 150 mg/dLBorderline High Triglyceride 150-199 mg/dLHigh Triglyceride: 200-499 mg/dLVery High Triglyceride: greater than or equal to 5OO mg/dL Cholesterol 149 <200 mg/dL [facility] Comment:Desirable Cholestero l: less than 200 mg/dLBorderline High Cholesterol: 200-239 mg/dLHigh Cholesterol: greater than 239 mg/dL LDL Cholesterol Calculated 71 <100 mg/dL [facility] Comment:Desirable LDL: less than 100 mg/dLNear Optimal/Above Optimal LDL: 110- 129 mg/dLBorderline High LDL: 130-159 mg/dLHigh LDL: 160-189 mg/dLVery High LDL: greater than or equal to 190 mg/dL HDL Cholesterol 63 >40 mg/dL [facility] Comment:Desirable HDL: great er than 40 mg/dL Note: This HDL assay may give artificially low results in patients with liver disease. Blood Venous blood specimen / Unknown 11/10/2024 10:42 AM EDT 11/10/2024 11:22 AM EDT us Ciro Name LAB BLOOD ORDERABLES Final Resul t [facility] [address] [place] [phone] * (ABNORMAL) Comprehensive Metabolic Panel (11/10/2024 10:42 AM EDT) Sodium 141 135 - 145 mmol/L [facility] Potassium 4.6 3.3 - 5.1 mmol/L [facility] Chloride 107 96 - 108 mmol/L [facility] Carbon Dioxide 27 22 - 29 mmol/L [facility] Anion Gap 12 12 - 20 [facility] Urea Nitrogen (BUN) 15 9 - 16 mg/dL [facility] Creatinine, Serum 0.77 0.5 - 1.4 mg/dL [facility] Estimated Glomerular Filt Rate >60 [facility] Comment:Chronic Kidney Disea se: Estimated GFR < 60 mL/min/1.85q1Zxlpum Kidney Disease: Estimated GFR < 15 mL/min/1.73m2 Glucose 122(H) 60 - 115 mg/dL [facility] Calcium 9.3 8.4 - 10.2 mg/dL [facility] Bilirubin, Total 0.9 0.0 - 1.0 mg/dL [facility] Aspartate Amino Transferase 26 5 - 31 U/L [facility] Alanine Aminotransferase 20 0 - 31 U/L [facility] Total Protein 7.1 6.5 - 8.0 g/dL [facility] Albumin Level 4.0 3.5 - 5.0 g/dL [facility] Alkaline Phosphatase 117 39 - 117 U/L [facility] Blood Venous blood specimen / Unknown 11/10/2024 10:42 AM EDT 11/10/2024 11:22 AM EDT us Ciro Name MD LAB BLOOD ORDERABLES Final Resul t [facility] [address] [place] [phone] * (ABNORMAL) CBC auto differential (11/10/2024 10:42 AM EDT) White Blood Count 6.8 4.8 - 10.8 X10*3/uL [facility] Red Blood Count 5.31 4.20 - 5.50 X10*6/uL [facility] Hemoglobin 13.0 12.0 - 16.0 g/dl [facility] Hematocrit 42.6 37.0 - 47.0 % [facility] Mean Corpuscular Volume 80.2 80.0 - 98.0 fL [facility] Mean Corpuscular Hemoglobin 24.5(L) 27.0 - 33.0 pg [facility] Mean Corpuscular HGB Conc 30.5(L) 31.0 - 35.0 g/dl [facility] Red Cell Distribution Width 13.5 11.0 - 16.0 % [facility] Platelet Count 240 160 - 400 X10*3/uL [facility] Mean Platelet Volume 10.7 9.4 - 12.3 fL [facility] Neutrophils Percent Auto 60.7 45 - 73 % [facility] Imm Gran Pct Auto 0.4 0.0 - 0.4 % [facility] Lymphocytes Percent Auto 27.8 20 - 40 % [facility] Monocytes Percent Auto 9.4 2 - 11 % [facility] Eosinophils Percent Auto 1.0 0 - 4 % [facility] Basophils Percent Auto 0.7 0 - 2 % [facility] NRBC Pct Auto 0.0 0.0 - 0.2 /100WBC [facility] Neutrophils Absolute Auto 4.1 2.0 - 8.3 x10*3/uL [facility] Imm Gran Abs Auto 0.03 0.00 - 0.03 X10*3/uL [facility] Lymphocytes Absolute Auto 1.9 1.2 - 4.9 X10*3/uL [facility] Monocytes Absolute Auto 0.6 0.1 - 1.2 X10*3/uL [facility] Eosinophils Absolute Auto 0.1 0.0 - 0.4 X10*3/uL [facility] Basophils Absolute Auto 0.1 0.0 - 0.2 X10*3/uL [facility] NRBC Abs Auto 0.000 0.0 - 0.012 X10*3/uL [facility] Blood Venous blood specimen / Unknown 11/10/2024 10:42 AM EDT 11/10/2024 11:22 AM EDT Ciro Banks MD LAB BLOOD ORDERABLES Final Resul t Performing Organization Address City/[facility] Co de Phone Number [facility] [address] [place] [phone] documented in this encounter Visit Diagnoses Diagnosis Prediabetes- Primary Other abnormal glucose Low back pain radiating to left leg Lumbago Non-cardiac chest pain Other chest pain Gastroesophageal reflux disease, unspecified whether esophagitis present documented in this encounter Additional Health Concerns Assessment Noted Time PHQ-9 Depression Total Score: 1 06/24/20 24 2:43 PM EST documented as of this encounter Care Teams Medical Office Scheduler Relationship Specialty Start Date End Date Name, MD Ciro [address] [place] [phone] PCP - General Family Medicine 09/12/15 documented as of this encounter
--- OUTSIDE RECORDS SUMMARY | 2024-11-10 12:20 | XMS_ITS | Clinical Summary ---
Author Organization [facility] Address [address] [place] [address] Care Team Providers Care Machine Maintenance Technician Name Role Phone Unavailable Primary Care Provider Unavailabl e Source Comments PLEASE NOTE, if this patient is a minor, it may be UNLAWFUL to discuss sensitive information that is contained in these records (such as FAMILY PLANNING, MENTAL HEALTH or SUBSTANCE ABUSE) with the minor patient's parent or other person without the patient's specific authorization.[facility] Allergies Active Allergy Reactions Criticality Noted Date Comments Aspirin Itching Medium 03/20/2019 Medications acetaminophen (TYLENOL) 325 mg tabletIndicatio ns:Arthritis Take 2 Tablets by mouth every 6 (six) hours as needed for pain 60 Tablet 2 1 Active montelukast (SINGULAIR) 10 mg tabletIndicatio ns:Moderate asthma, unspecified whether complicated, unspecified whether persistent ([facility]) Take 1 Tablet by mouth nightly at bedtime 90 Tablet 1 1 Active cholecalciferol , vitamin D3, 25 mcg (1,000 unit) capsuleIndicati ons:Vitamin D deficiency Take 1 Capsule by mouth once daily 90 Capsule 1 1 Active calcium carbonate (OS-ANGIE) 500 mg calcium (1,250 mg) chewable tabletIndicatio ns:Post-menopau judi Place 1 Tablet into mouth, chew and swallow 2 (two) times daily 180 Tablet 1 1 Active diclofenac sodium (VOLTAREN) 1 % gelIndications: Chronic bilateral low back pain with left-sided sciatica Apply 2 gm topically twice per day as needed to affected area for pain relief 350 g 1 1 Active fluticasone propion-salmete roL (ADVAIR HFA) 115-21 mcg/actuation inhalerIndicati ons:Moderate asthma, unspecified whether complicated, unspecified whether persistent (HHS-HCC) Inhale 2 Puffs into the lungs 2 (two) times daily 1 Inhaler 5 1 Active albuterol sulfate 90 mcg/actuation inhalerIndicati ons:Moderate asthma, unspecified whether complicated, unspecified whether persistent (HHS-HCC) Inhalar 2 inhalaciones por la boca en los pulmones cada 4 a 6 horas zina sea necesario para la respiracion sibilante o dificultad para resp 18 g 1 1 Active metFORMIN (GLUCOPHAGE) 500 mg tabletIndicatio ns:Prediabetes TOME PHILLY TABLETA DOS VECES AL EVA CON ALIMENTO 180 Tablet 1 1 Active Active Problems Problem Noted Date Diagnosed Date Osteopenia of multiple sites 04/19/2019 Prediabetes 03/24/2019 Vitamin D deficiency 03/24/2019 Asthma ([facility]HS-HCC) Arthritis Overview (03/20/2019): hands/neck Back pain Immunizations Immunization Administration Dates Next Due Moderna COVID-19 Vaccine, re d cap blue label, 12+ Primary Series 09/24/2020,08/27/2020 PNEUMOCOCCAL CONJUGATE PCV 13 07/23/2017, 016 PNEUMOCOCCAL POLYSACCHARIDE PPV23 09/12/2015 TDAP 05/29/2016 ZOSTER VACCINE, RECOMBINANT (SHINGRIX) 0(Deferred: Out of Stock) Family History Medical History Relation Name Comments No Known Problems Brother 1 No Known Problems Brother 2 No Known Problems Brother 3 No Known Problems Brother 4 No Known Problems Brother 5 No Known Problems Brother 6 No Known Problems Daughter 1 No Known Problems Daughter 2 Other (See Comments) Father HIV Other (See Comments) Mother murdere d Diabetes Sister 1 Hypertension Sister 1 No Known Problems Sister 2 No Known Problems Sister 3 No Known Problems Sister 4 No Known Problems Sister 5 No Known Problems Son Relation Name Status Comments Brother 1 Alive Brother 2 Alive Brother 3 Alive Brother 4 Alive Brother 5 Alive Brother 6 Alive Daughter 1 Alive Daughter 2 Alive Father Mother Sister 1 Alive Sister 2 Alive Sister 3 Alive Sister 4 Alive Sister 5 Alive Son Alive Social History Tobacco Use Types Packs/Day Years Used Date Smoking Tobacco: Some Days Cigarettes Last attempted to quit: 2017 Smokeless Tobacco: Never Alcohol Use Standard Drinks/Week Comments Yes 2 (1 standard drink = 0.6 oz pur e alcohol) special occasions Social Connections Answer Date Recorded Social Connections and Isolation 0 03/19/2019 Financial Resource Strain Answer Date R ecorded Financial Resource Strain 0 2018 Stress Answer Date Recorded Stress 0 03/19/2019 Physical Activity Answer Date Recorded Physical Activity 0 03/19/2019 Food Insecurity Answer Date Recorded Food 0 03/19/2019 Transportation Needs Answer Date Record ed Transportation 0 03/19/2019 Housing Stability Answer Date Recorded Housing 0 03/19/2019 Safety and Environment Answer Date Elpidio rded Safety 0 03/19/2019 Utilities Answer Date Recorded Utilities 0 03/19/2019 Employment Answer Date Recorded Employment 0 03/19/2019 Comments No Sex and Gender Information Value Date Recorded Sex Assigned at Female 03/20/2019 11:55 AM PDT Legal Sex Female 10:56 AM PDT Gender Identity Female 03/20/2019 11:55 AM PDT Sexual Orientation Straight 03/20/2019 11 :55 AM PDT Occupation Industry Job Start Date Job End Date disability Not on file Not on file Not on file Last Filed Vital Signs Vital Sign Reading Time Taken Comments Blood Pressure 120/66 04/21/2020 2:30 PM EDT Pulse 80 04/21/2020 2:30 PM EDT Temperature 36.9 ??C (98.4 ??F) 04/21/2020 2:30 PM ED T Respiratory Rate 16 04/21/2020 2:30 PM EDT Oxygen Saturation 98% 07/29/2019 10:02 AM EST Inhaled Oxygen Concentration - - Weight 81.6 kg (180 lb) 04/21/2020 2:30 PM EDT Height 152.4 cm (5') 04/21/2020 2:30 PM EDT Body Mass Index 35.15 04/21/2020 2:30 PM EDT Plan of Treatment Health Maintenance Due Date Last Done Comments Tobacco Cessation Counseling (#1) [address] Colonography 1995 Colonoscopy 1995 Fecal DNA 1995 Flexible Sigmoidoscopy 1995 Imm-Zoster, Recombinant (1 of 2) 2000 Breast Cancer Screening (Mammogram) 04/06/2021 04/06/2019 Annual Preventive Care Visit 04/21/2021 04/21/2020, 03/26/2019 Falls Prevention 04/21/2021 04/21/2020, 03/26/2019 Hypertension Screening (#1) 04/21/2021 Diabetes Screening 04/27/2021 04/27/2020, 1 , 07/29/2019, Additional history exists Colorectal Cancer Screening 04/29/2021 FIT/gFOBT 04/29/2021 04/29/2020 [id number] ( season) 03/15/202409/24/ 021, 08/27/2020 Imm-Influenza (#1) 2024 Alcohol and Drug Screen 07/15/2024 04/21/2020, 03/26 Depression Annual Screen 07/15/2024 Lipid Screening 04/27/2025 04/27/2020, 03/24/2019 Imm-DTaP/Tdap/Td (2 - Td or Tdap) 05/29/2026 016 Imm-Pneumococcal 65+ Completed 07/23/2017, 09/12/2015, 09/12/2015 Hepatitis C Screening Completed 03/24/2019 Bone Density Screening Completed 04/11/2021, 2020 Procedures Procedure Name Priority Date/Time Associated Diagnosis Comments REFERRAL FOR BONE DENSITY TESTING Routine 04/11/2021 3:00 AM EDT Post-menopausal Osteopenia of multiple sites FECAL OCCULT BLOOD HEMOCCULT X3, GERSON RAZIA (POCT) Routine 04/29/2020 2:09 PM EDT Colon cancer screening COMPREHENSIVE METABOLIC PANEL Routine 04/27/2020 10:15 AM EDT Encounter for general adult medical examination without abnormal findings LIPID PANEL Routine 04/27/2020 10:15 AM EDT Encounter for general adult medical examination without abnormal findings MAMMOGRAM BI-RADS, ABSTRACTED Routine 04/06/2019 HEPATITIS C ANTIBODY Routine 03/24/2019 9:01 AM EDT Screening for viral disease from Last 3 Months or Most Recently Relevant to Health Maintenance Results * REFERRAL FOR BONE DENSITY TESTING (04/11/2021 3:00 AM EDT) 04/11/2021 3:00 AM EDT Jossy [facility] IMG RFL DXA Edited Result - Final * FECAL OCCULT BLOOD HEMOCCULT X3, GERSON RAZIA (POCT) (04/29/2020 2:09 PM EDT) FECAL OCCULT BLOOD NEGATIVE NEGATIVE [facility] PO[facility] FECAL OCCULT BLOOD #2 NEGATIVE NEGATIVE [facility] POCT FECAL OCCULT BLOOD #3 NEGATIVE NEGATIVE [facility] Stool Stool specimen / Unknown 04/29/2020 2:09 PM EDT [facility] - BLOOD DRAW Final Result Performing Organization Address City/[facility]/ZIP Co de Phone Number [facility] * LIPID PANEL (04/27/2020 10:15 AM EDT) CHOLESTEROL 184 0 - 200 mg/dL [facility] TRIGLYCERIDES 100 0 - 150 mg/dL [facility] HDL CHOLESTEROL 67 >40 mg/dL [facility] LDL CALCULATED 97 0 - 100 mg/dL [facility] TC-HDLC RATIO 2.8 0 - 4.4 mg/dL [facility] Blood Blood / Unknown 04/27/2020 1 0:15 AM EDT 04/27/2020 1:54 PM EDT Narrative [facility] - 04/27/2020 2:39 PM EDT [employer], [place] [address] [employer] - Maren Christianson MD PT ID [id number] ORD# [id number] [facility] - BLOOD DRAW Edited Result - Final [facility] [address] [place] [address], [place] [phone] * (ABNORMAL) COMPRE METAB PANEL (04/27/2020 10:15 AM EDT) GLUCOSE 110(H) 70 - 100 mg/dL [facility] Comment:Reference range appl icable to fasting specimens only BUN 15 5 - 25 mg/dL [facility] CREAT 0.78 0.5 - 1.1 mg/dL [facility] GLOMERULAR FILTRATION RATE > 60 [facility] Comment: If patient is -[place], multiply result by 1.21 Chronic Kidney Disease: < 60 ml/min/1.73 square meters Kidney Failure: < 15 ml/min/1.73 square meters SODIUM 141 135 - 145 mEq/L [facility] POTASSIUM 4.5 3.5 - 5.5 mmol/L [facility] CHLORIDE 106 96 - 110 mmol/L [facility] CO2 30 21 - 32 mmol/L [facility] ANION GAP 5 3 - 11 [facility] CALCIUM 9.4 8.5 - 10.5 mg/dL [facility] TOTAL PROTEIN 7.3 6.0 - 8.0 G/dL [facility] ALBUMIN 3.8 3.2 - 5.0 G/dL [facility] BILI, TOTAL 0.7 0.0 - 1.4 mg/dL [facility] SGOT 14 10 - 42 U/L [facility] SGPT 18 10 - 60 U/L [facility] ALK PHOS 109 42 - 121 U/L [facility] Blood Blood / Unknown 04/27/2020 1 0:15 AM EDT 04/27/2020 1:54 PM EDT Narrative [facility] - 04/27/2020 2:39 PM EDT [employer], a member of [address] [address] [employer] - Maren Christianson MD PT ID [id number] ORD# [id number] [facility] - BLOOD DRAW Edited Result - Final Performing Organization Address City/[facility]/ZIP Co de Phone Number [facility] [employer] [address], [place] [phone] * MAMMOGRAM BI-RADS, ABSTRACTED (04/06/2019) Anatomical Region Laterality Modality Other Provider iL PLASENCIA MAMMO Final Result * HEPATITIS C ANTIBODY (03/24/2019 9:01 AM EDT) HEPATITIS C VIRUS SCREEN NEGATIVE NEGATIVE [facility] Blood specimen (specimen) Blood / Unknown 03/24/2019 9:01 AM EDT 03/24/2019 9:15 AM EDT Narrative [facility] - 03/24/2019 12:50 PM EDT [employer], a member of [address] [address] [employer] - Maren Christianson MD PT ID [id number] ORD# [id number] [facility] - BLOOD DRAW Final Result Performing Organization Address [facility] Co de Phone Number [address] [address], [place] [phone] from Last 3 Months or Most Recently Relevant to Health Maintenance Insurance [employer]
--- OUTSIDE RECORDS SUMMARY | 2024-11-10 12:20 | XMS_ITS | Encounter Summary ---
Author Organization [employer] Address [address] [facility] [address] [place] [address] Care Team Providers Care Human Service Specialist Name Role Phone Name, Ciro LUCAS Primary Care Provider [phone] Reason for Visit * Reason Comments Med Refill Encounter Details Date Type Department Care Team ([facility] st Contact Info) Description 07/26/2024 Refill [facility]INE [address] [place] [address] Name, MD Ciro [address] [place], [place] [phone] Social History Tobacco Use Types Packs/Day Years [...] Upcoming Encounters Date Type Department Care Team ([facility] st Contact Info) Description 11/25/2024 11:30 AM EDT Telemedicine [facility] MEDICINE [address] [place] [address] documented as of this encounter Visit Diagnoses Not on filedocumented in this encounter Additional Health Concerns Assessment Noted Time PHQ-9 Depression Total Score: 1 06/24/20 24 2:43 PM EST documented as of this encounter Care Teams Human Service Specialist Relationship Specialty Start Date End Date Name, MD Ciro [address] [place] [address] PCP - General Family Medicine 09/12/15 documented as of this encounter
== END 2024-11-10 10:41 | disposition home or self-care (01) ==
LOC: HO.HHCL 10:40
PROVIDERS: Visit Provider Internal Medicine Geriatric Medicine
DX: R73.03 Prediabetes (principal); Z13.220 Encounter for screening for lipoid disorders
CPT/HCPCS: 36415; 80053; 80061; 85025

== ENCOUNTER 2025-03-08 13:55 | Outpatient (REF) | payer MEDICARE, MEDICAID, SELFPAY ==
--- OUTSIDE RECORDS SUMMARY | 2025-03-08 13:45 | XMS_ITS | Encounter Summary ---
Author Organization [employer] Address [address] [facility] 7t [place] [address] Care Team Providers Care Hand Stitcher Name Role Phone NameCiro MD Primary Care Provider [phone] Reason for Referral * Imaging (Routine) - Authorized Specialty Diagnoses / Procedures Referred By Contac t Referred To Contact Radiology Diagnoses Encounter for screening mammogram for malignant neoplasm of breast Procedures BI Mammogram Screening Tomosynthesis Bilateral NameCiro MD [address] [place] [id number] Phone: tel: fax: [address] Phone: tel: fax: Referral ID Status Reason Start Date Expiration Date V isits Requested Visits Authorized [id number] Authorized 03/08/2025 03/08/2026 1 1 Reason for Visit * Reason Comments Follow-up Encounter Details Date Type Department Care Team (Late st Contact Info) Description 03/08/2025 1:45 PM EDT Office Visit [facility] [address] [place] [address] [phone] Ciro Banks MD [address] [place], [place] [phone] Low back pain radiating to left leg (Primary Dx); Osteoarthritis of spine with radiculopathy, lumbar region; Prediabetes; Encounter for screening mammogram for malignant neoplasm of breast; Mild intermittent asthma without complication Social History Tobacco Use Types Packs/Day Years Used Date Smoking Tobacco: Every Day Cigarettes Smokeless Tobacco: Never Tobacco Cessation:Ready to Q uit: Not Asked; Counseling Given: Not Answered Alcohol Use Standard Drinks/Week Comments Yes 0 (1 standard drink = 0.6 oz pur e alcohol) occassional Depression Answer Date Recorded Patient Health Questionnaire-9 Score 1 03/08/2025 Patient Health Questionnaire-9 Score 1 03/08/2025 Last PHQ-9: Questionnaire Data Not on file 0 03/08/2025 Housing Stability Answer Date Recorded What is your housing situation today? I have letyrodrigo oconnell 03/08/[address] you li ve. Do you have problems with any of the following? Pests such as bugs, ants, or mice 03/08/2025 Food Insecurity Answer Date Recorded Within the past 12 months, y ou worried that your food would run out before you got money to buy more: Never True 2024 Within the past 12 months,th e food you bought just didn't last and you didn't have enough money to get more: Sometimes True 03/08/2025 Transportation Answer Date Recorded In the past 12 months, has l ack of transportation kept you from medical appts, meetings, work or from getting things needed for daily living? No 06/24/2024 Utilities Answer Date Recorded In the past 12 months, has t he electric, gas, oil or water company threatened to shut off services in your home? No 03/08/2025 Depression Answer Date Recorded Patient Health Questionnaire-2 Score 0 03/08/2025 Internet Access Answer Date Recorded Internet Access [...] Sign Reading Time Taken Comments Blood Pressure 132/62 03/08/2025 1:23 PM EDT Pulse 72 03/08/2025 1:23 PM EDT Temperature 35.9 C (96.6 F) 03/08/2025 1:23 PM EDT Respiratory Rate 12 03/08/2025 1:23 PM EDT Oxygen Saturation - - Inhaled Oxygen Concentration - - Weight 80.6 kg (177 lb 9.6 oz) 03/08/2025 1:23 P M EDT Height 157.5 cm (5' 2 ) 03/08/2025 1:23 PM EDT Body Mass Index 32.48 03/08/2025 1:23 PM EDT documented in this encounter Functional Status * Over the past 2 weeks, how often have you been bothered by any of the following problems? Question Answer Date of Assessment Author Patient Health Questionnaire -2 Score 0 03/08/2025 1:25 PM EDT Ender Ureña MA * Little interest or pleasure in doing things Answer Date of Assessment Author Not at all 03/08/2025 1:25 PM EDT Anthony Ureña MA * Feeling down, depressed, or hopeless Answer Date of Assessment Author Not at all 03/08/2025 1:25 PM EDT Anthony Ureña MA * Trouble falling or staying asleep, or sleeping too much Answer Date of Assessment Author Several days 03/08/2025 1:25 PM EDT Anthony Ureña MA * Feeling tired or having little energy Answer Date of Assessment Author Not at all 03/08/2025 1:25 PM EDT Anthony Ureña MA * Poor appetite or overeating Answer Date of Assessment Author Not at all 03/08/2025 1:25 PM EDT Anthony Ureña MA * Feeling bad about yourself - or that you are a failure or have let yourself or your family down Answer Date of Assessment Author Not at all 03/08/2025 1:25 PM EDT Anthony Ureña MA * Trouble concentrating on things, such as reading the newspaper or watching television Answer Date of Assessment Author Not at all 03/08/2025 1:25 PM EDT Anthony Ureña MA * Moving or speaking so slowly that other people could have noticed? Or the opposite - being so fidgety or restless that you have been moving around a lot more than usual. Answer Date of Assessment Author Not at all 03/08/2025 1:25 PM EDT Anthony Ureña MA * Thoughts that you would be better off or hurting yourself in some way Answer Date of Assessment Author Not at all 03/08/2025 1:25 PM HIPOLITOT Anthony Ureña MA * Patient Health Questionnaire-9 Score Answer Date of Assessment Author 1 03/08/2025 1:25 PM EDT Anthony Ureña MA * How difficult have these problems made it for you to do your work, take care of things at home, or get along with other people? Answer Date of Assessment Author Not difficult at all 03/08/2025 1:25 PM EDT Anthony Snyder MA documented as of this encounter Progress Notes * Ciro Banks MD - 03/08/2025 1:45 PM EDT Subjective Patient ID: Gabby Scanlon is a 74 y.o. female who presents for Follow-up. Patient comes for a follow-up visit. She is a light smoker with history of asthma, prediabetes, andchronic low back pain with radiation to the left leg related to significant DJD of the lumbar spine. The patient continues smoking cigarettes. She tells me asthma has not been bothering her lately. She has been using albuterol 1 or 2 times a day. She is not using her Arnuity consistently. She deniesany recent URI symptoms. She continues to have low back pain with radiation to the left leg. She is reluctant to go to pain clinic. She does not want to go to physical therapy. She has a personal history of allergy to aspirin. She denies any symptoms of hyperglycemia like polyuria or polydipsia. She continues on metformin for diabetes prevention. She is also on statin for primary prevention of cardiovascular disease. She agreed to go for repeat blood work today. On review of health maintenance schedule she is due for repeat mammogram. Review of Systems Constitutional: Negative for chills and fever. HENT: Negative for sore throat. Respiratory: Negative for cough, shortness of breath and wheezing. Cardiovascular: Negative for chest pain, palpitations and leg swelling. Gastrointestinal: Negative for abdominal pain. Musculoskeletal: Positive for back pain. Neurological: Negative for weakness. Visit Vitals BP 132/62 (BP Location: Left arm, Patient Position: Sitting, BP Cuff Size: Large adult) Pulse 72 Temp 96.6 ??F (35.9 ??C) (Temporal) Resp 12 Ht 5' 2 (1.575 m) Wt 177 lb 9.6 oz (80.6 kg) BMI 32.48 kg/m?? Smoking Status Every Day BSA 1.88 m?? Objective Physical Exam Constitutional: Appearance: Normal appearance. Cardiovascular: Rate and Rhythm: Normal rate and regular rhythm. Heart sounds: No murmur heard. No gallop. Pulmonary: Effort: Pulmonary effort is normal. No respiratory distress. Breath sounds: Normal breath sounds. No wheezing. Musculoskeletal: Right lower leg: No edema. Left lower leg: No edema. Neurological: General: No focal deficit present. Mental Status: She is alert. Motor: No weakness. Gait: Gait normal. Assessment/Plan Diagnoses and all orders for this visit: Low back pain radiating to left leg Comments: I recommended to use gabapentin. We discussed sedative side effects of med. I will increase the dose gradually as tolerated. Osteoarthritis of spine with radiculopathy, lumbar region Prediabetes Comments: Continue metformin and check blood work listed below Orders: - Basic Metabolic Panel; Future - Vitamin B12; Future - Hemoglobin A1c; Future Encounter for screening mammogram for malignant neoplasm of breast Comments: I will refer for repeat mammogram at [facility] Orders: - BI Mammogram Screening Tomosynthesis Bilateral; Future Mild intermittent asthma without complication Comments: I recommended to quit smoking. Daily Arnuity for asthma prevention. Continue rescue albuterol. Other orders - fluticasone furoate (Arnuity Ellipta) 100 MCG/ACT inhaler; Inhale 1 puff Once per day. Rinse mouth with water after use to reduce aftertaste and incidence of candidiasis. Do not swallow. - gabapentin (Neurontin) 100 MG capsule; Take 1 capsule (100 mg) by mouth at bedtime for 3 days, THEN 1 capsule (100 mg) 2 times daily for 7 days, THEN 1 capsule (100 mg) 3 times daily. documented in this encounter Plan of Treatment Scheduled Orders Name Type Priority Associated Diagnoses Orde r Schedule BI Mammogram Screening Tomosynthesis Bilateral Imaging Routine Encounter for screening mammogram for malignant neoplasm of breast Expected: 03/08/2025, Expires: 05/08/2026 Basic Metabolic Panel Lab Routine Prediabetes Expected: 03/08/2025 (Approximate), Expires: 03/08/2026 Vitamin B12 Lab Routine Prediabetes Expected: 03/08/2025 (Approximate), Expires: 03/08/2026 Hemoglobin A1c Lab Routine Prediabetes Expected: 03/08/2025 (Approximate), Expires: 03/08/2026 documented as of this encounter Visit Diagnoses Diagnosis Low back pain radiating to left leg- Primary Lumbago Osteoarthritis of spine with radiculopathy, lumbar region Prediabetes Other abnormal glucose Encounter for screening mammogram for malignant neoplasm of breast Mild intermittent asthma without complication documented in this encounter Additional Health Concerns Assessment Noted Time PHQ-9 Depression Total Score: 1 03/08/20 1:25 PM EDT documented as of this encounter Care Teams Hand Stitcher Relationship Specialty Start Date End Date Name, MD Ciro [address] [place] [id number] PCP - General Family Medicine 09/12/15 documented as of this encounter
--- OUTSIDE RECORDS SUMMARY | 2025-03-08 15:21 | XMS_ITS | Encounter Summary ---
Author Organization [employer] Address [address] [place] [address] 7t [place] [address] Care Team Providers Care Animal Ride Manager Name Role Phone Name, Ciro LUCAS Primary Care Provider [phone] Reason for Visit * Reason Onset Date Comments Results 02/11/2023 Encounter Details Date Type Department Care Team ([facility] st Contact Info) Description 02/11/2023 Telephone [facility] [address] [place], [place] [phone] Name, MD Ciro [address] [place] [address] Results Social History Tobacco Use Types Packs/Day [...] MRI results scanned into pt chart from [facility]. Please review and advise as PCP if off. * Telephone Encounter - Sarika Mayen - 02/11/2023 11:05 AM EDT Tc from pt requesting results on MRI. Please contact pt at [phone] (Samoan) documented in this encounter Plan of Treatment Not on file documented as of this encounter Visit Diagnoses Not on filedocumented in this encounter Care Teams Animal Ride Manager Relationship Specialty Start Date End Date Name, MD Ciro [address] [place] [address] PCP - General Family Medicine 09/12/15 documented as of this encounter
--- OUTSIDE RECORDS SUMMARY | 2025-03-08 15:21 | XMS_ITS | Encounter Summary ---
Author Organization [employer] Address [address] [facility] 7t [place] [address] Care Team Providers Care Registration Rep Name Role Phone Name, Ciro LUCAS Primary Care Provider [phone] Encounter Details Date Type Department Care Team (Latest Contact Info) Description 03/08/2025 Travel Social History Tobacco Use Types Packs/Day [...] housing situation today? I have lety oconnell 03/08/[address] you [...] AM EDT documented as of this encounter Functional Status * Over the [...] 1:25 PM HIPOLITOT Anthony Ureña MA * Feeling down, depressed, or hopeless Answer Date of Assessment Author Not at all 03/08/2025 1:25 PM HIPOLITOT Anthony Ureña MA * Trouble falling or staying asleep, or sleeping too much Answer Date of Assessment Author Several days 03/08/2025 1:25 PM Anthony Albert MA * Feeling tired or having little energy Answer Date of Assessment Author Not at all 03/08/2025 1:25 PM HIPOLITOT Anthony Ureña MA * Poor appetite or overeating Answer Date of Assessment Author Not at all 03/08/2025 1:25 PM Anthony Albert MA * Feeling bad about yourself - or that you are a failure or have let yourself or your family down Answer Date of Assessment Author Not at all 03/08/2025 1:25 PM Anthony Albert MA * Trouble concentrating on things, such as reading the newspaper or watching television Answer Date of Assessment Author Not at all 03/08/2025 1:25 PM Anthony Albert MA * Moving or speaking so slowly [...] 1:25 PM EDT Anthony Ureña MA * Patient Health Questionnaire-9 Score Answer Date of Assessment Author 1 03/08/2025 1:25 PM EDT Anthony Ureña MA * How difficult have these problems made it for you to do your work, take care of things at home, or get along with other people? Answer Date of Assessment Author Not difficult at all 03/08/2025 1:25 PM EDT Anthony Yen MA documented as of this encounter Plan of Treatment Not on file documented as of this encounter Visit Diagnoses Not on filedocumented in this encounter Additional Health Concerns Assessment Noted Time PHQ-9 Depression Total Score: 1 03/08/20 1:25 PM EDT documented as of this encounter Care Teams Registration Rep Relationship Specialty Start Date End Date Name, MD Ciro [address] [place] [address] PCP - General Family Medicine 09/12/15 documented as of this encounter
--- OUTSIDE RECORDS SUMMARY | 2025-03-08 15:21 | XMS_ITS | Encounter Summary ---
Author Organization [employer] Address [address] [facility] 7t [place] [address] Care Team Providers Care Roofer Vinyl Coating Name Role Phone Name, Ciro LUCAS Primary Care Provider [phone] Reason for Visit * Reason Comments Med Refill Encounter Details Date Type Department Care Team (Late st Contact Info) Description 07/26/2024 Refill [facility] [address] [place], [place] [phone] Name, MD Ciro [address] [place] [address] Social History Tobacco Use Types Packs/Day Years [...] documented as of this encounter Care Teams Ro[employer]er Vinyl Coating Relationship Specialty Start Date End Date Name, MD Ciro [address] [place] [address] PCP - General Family Medicine 09/12/15 documented as of this encounter
--- OUTSIDE RECORDS SUMMARY | 2025-03-08 15:21 | XMS_ITS | Encounter Summary ---
Author Organization [employer] Address [address] [facility] 7t [place] [address] Care Team Providers Care Pail Tester Name Role Phone Name, Ciro LUCAS Primary Care Provider [phone] Reason for Visit * Reason Onset Date Comments CHART PREP 03/08/2025 Encounter Details Date Type Department Care Team ([facility] st Contact Info) Description 03/08/2025 Telephone [facility] [address] [place], [place] [phone] Name, MD Ciro [address] [place] [address] CHART PREP Social History Tobacco Use Types [...] Telephone Encounter - Sarah Hughes MA - 03/08/2025 12:09 PM EDT Chart Prep Labs: done from 11/10/24 Images: not applicable Referrals: not applicable Vaccines due: Covid, RSV, and Zoster Screenings: mammogram Overdue care gaps: SBIRT, SDOH, and PHQ-9 documented in this encounter Plan of Treatment Not on file documented as of this encounter Visit Diagnoses Not on filedocumented in this encounter Additional Health Concerns Assessment Noted Time PHQ-9 Depression Total Score: 1 03/08/20 25 1:25 PM EDT documented as of this encounter Care Teams Pail Tester Relationship Specialty Start Date End Date Name, MD Ciro [address] [place] [address] PCP - General Family Medicine 09/12/15 documented as of this encounter
--- OUTSIDE RECORDS SUMMARY | 2025-03-08 15:21 | XMS_ITS | Encounter Summary ---
Author Organization [employer] Address [address] [facility] 7t [place] [address] Care Team Providers Care Construction Contractor Name Role Phone Name, Ciro LUCAS Primary Care Provider [phone] Reason for Visit * Reason Comments Med Refill Encounter Details Date Type Department Care Team (Late st Contact Info) Description 03/04/2025 Refill [facility] [address] [place], [place] [phone] Name, MD Ciro [address] [place] [address] Low back pain radiating to left leg Social History Tobacco Use Types Packs/Day Years [...] Diagnosis Low back pain radiating to left leg Lumbago documented in this encounter Additional Health Concerns Assessment Noted Time PHQ-9 Depression Total Score: 1 06/24/20 24 2:43 PM EST documented as of this encounter Care Teams Construction Contractor Relationship Specialty Start Date End Date Name, MD Ciro [address] [place] [address] PCP - General Family Medicine 09/12/15 documented as of this encounter
--- OUTSIDE RECORDS SUMMARY | 2025-03-08 15:21 | XMS_ITS | Encounter Summary ---
Author Organization [employer] Address [address] [place] [address] 7[address] [place] [address] Care Team Providers Care Cigarette Making Machine Operator Name Role Phone Name, Ciro LUCAS Primary Care Provider [phone] Encounter Details Date Type Department Care Team (Late st Contact Info) Description 12/14/2022 Abstract [facility] [address] [place] [address] Name, MD Ciro [address] [place] [address] Social History Tobacco Use Types Packs/Day Years [...] on filedocumented in this encounter Care Teams Cigarette Making Machine Operator Relationship Specialty Start Date End Date NameCiro MD [address] [place] [address] PCP - General Family Medicine 09/12/15 documented as of this encounter
--- OUTSIDE RECORDS SUMMARY | 2025-03-08 15:21 | XMS_ITS | Clinical Summary ---
Author Organization [employer] Address [address] [place] [address] [address] [place] [address] Care Team Providers Care Surgery Technician Name Role Phone Name, Ciro LUCAS Primary Care Provider [phone] Allergies Active Allergy Reactions Criticality Noted Date Comments Aspirin Itching Medium 11/01/2015 Medications clotrimazole-b etamethasone (Lotrisone) cream Apply once a day at bedtime to the affected skin 45 g 3 06/25/20 23 Active cholecalcifero l (D3-1000) 25 MCG (1000 UT) tablet TAKE 1 TABLET BY MOUTH EVERY DAY 90 tablet 1 04/28/20 24 Active albuterol 108 (90 Base) MCG/ACT inhaler Inhale 2 puffs Every 4-6 hours as needed for wheezing or shortness of breath. 18 g 11 06/24/20 24 025 Active metFORMIN (Glucophage) 500 MG tablet TAKE 1 TABLET BY MOUTH WITH BREAKFAST AND EVENING MEAL 180 tablet 3 07/14/20 24 Active atorvastatin (Lipitor) 40 MG tablet TAKE 1 TABLET BY MOUTH EVERY MORNING 90 tablet 3 08/10/19 25 Active metoprolol tartrate (Lopressor) 25 MG tablet TOME 1 TABLETA POR VIA ORAL DOS VECES AL EVA 180 tablet 3 09/22/19 25 Active montelukast (Singulair) 10 MG tabletIndicati ons:Asthma, unspecified asthma severity, unspecified whether complicated, unspecified whether persistent TOME 1 TABLETA POR VIA ORAL TODOS [place] COLÓN AL ACOSTARSE 90 tablet 1 09/29/19 25 Active omeprazole OTC (PriLOSEC OTC) 20 MG EC tabletIndicati ons:Non-cardia c chest pain Take 1 tablet (20 mg) by mouth before breakfast. Do not crush, chew, or split. 30 tablet 11 11/10/19 25 026 Active Blood Pressure kit Use once a day 1 kit 11/10/19 25 Active fluticasone furoate (Arnuity Ellipta) 100 MCG/ACT inhaler Inhale 1 puff Once per day. Rinse mouth with water after use to reduce aftertaste and incidence of candidiasis. Do not swallow. 1 each 11 03/08/20 25 026 Active gabapentin (Neurontin) 100 MG capsule Take 1 capsule (100 mg) by mouth at bedtime for 3 days, THEN 1 capsule (100 mg) 2 times daily for 7 days, THEN 1 capsule (100 mg) 3 times daily. 197 capsule 03/08/20 25 025 Active fluticasone furoate (Arnuity Ellipta) 100 MCG/ACT inhaler Inhale 1 puff Once per day. Rinse mouth with water after use to reduce aftertaste and incidence of candidiasis. Do not swallow. 1 each 06/24/20 24 025 Discontinued(Re order (will not trigger notification to Pharmacy)) methocarbamol (Robaxin) 750 MG tabletIndicati ons:Low back pain radiating to left leg TAKE 1 TABLET BY MOUTH EVERY DAY NEEDED FOR MUSCLES SPASMS FOR UP TO 10 DAYS 30 tablet 02/04/20 25 025 Discontinued methocarbamol (Robaxin) 750 MG tabletIndicati ons:Low back pain radiating to left leg TAKE 1 TABLET BY MOUTH EVERY DAY NEEDED FOR MUSCLES SPASMS FOR UP TO 10 DAYS 30 tablet 03/04/20 25 025 Discontinued Active Problems Problem Noted Date Diagnosed Date Arthritis 03/12/2023 Overview (03/12/2023): hands/neck Asthma 03/12/2023 Back pain 03/12/2023 Low vitamin D level 07/13/2022 Calcification of coronary artery 07/13/2022 Pulmonary nodule 07/13/2022 Overview (09/18/2022): CT 2021 showed: Intrathoracic lymph nodes calcification and calcified pulmonary nodules perhaps sequela of remote granulomatous infection. Negative Quantiferon for TB Follows with Court for pulmonary [facility] Asymptomatic No further work up recommended Osteopenia of multiple sites 04/19/2019 Prediabetes 03/24/2019 Vitamin D deficiency 03/24/2019 Depressive disorder 03/14/2018 Constipation 07/23/2017 Low back pain radiating to left leg 07/23/2017 Hip pain 02/22/2017 Peripheral venous insufficiency 02/29/2016 Restless legs 11/01/2015 Obesity 11/01/2015 Mild intermittent asthma 11/01/2015 Osteoarthritis of knee 11/01/2015 Encounters Date Type Department Care Team Description 03/08/2025 1:45 PM EDT Office Visit [facility] [address] [place] [address] Ciro Banks MD Low back pain radiating to left leg (Primary Dx); Osteoarthritis of spine with radiculopathy, lumbar region; Prediabetes; Encounter for screening mammogram for malignant neoplasm of breast; Mild intermittent asthma without complication 03/08/2025 Travel 03/08/2025 Telephone [facility] [address] [place] [address] Ciro Banks MD CHART PREP 03/04/2025 Refill [facility] [address] [place] [address] Ciro Banks MD Low back pain radiating to left leg 02/03/2025 Refill [facility] [address] [place] [address] Ciro Banks MD Low back pain radiating to left leg 01/07/2025 Refill [facility] [address] [place] [address] Ciro Banks MD Low back pain radiating to left leg 12/06/2024 Refill [facility] [address] [place] [address] Ciro Banks MD Low back pain radiating to left leg from Last 3 Months Immunizations Immunization Administration Dates Next Due Moderna Covid-19 Vaccine [...] 12 03/08/2025 1:23 PM EDT Oxygen Saturation 97% 11/09/2024 2:58 PM EDT Inhaled Oxygen Concentration - - Weight 80.6 kg (177 lb 9.6 oz) 03/08/2025 1:23 P M EDT Height 157.5 cm (5' 2 ) 03/08/2025 1:23 PM EDT Body Mass Index 32.48 03/08/2025 1:23 PM EDT Plan of Treatment Health Maintenance Due Date Last Done Comments CT Colonography 1950 FIT DNA/Cologuard 1950 FIT 1950 FOBT 1950 Sigmoidoscopy 1950 Hepatitis C Screening 1968 Zoster Vaccines (1 of 2) 2000 RSV Patients and Patients Aged 60 years or older (1 - Risk 60-74 years 1-dose series) 2010 COVID-19 Vaccine ( season) 2024 05/08/2021, 09/24/2020, 08/27/2020 Mammogram 10/13/2024 10/14/2023, 10/10/2022 Influenza Vaccine (#1) 2025 Diabetes: Hemoglobin A1C 06/24/2025 024, 09/20/2022, 03/16/2022, Additional history exists Alcohol/Substance Use Screening 03/08/2026 03/08/2025 Depression Screening 03/08/2026 03/08/2025, 03/08/20 25 SDOH Screening 03/08/2026 03/08/2025 Tobacco Screening 03/08/2026 03/08/2025 DTaP/Tdap/Td Vaccines (2 - Td or Tdap) 05/29/2026 05/29/2016 Lipid Panel 11/10/2029 11/10/2024, 05/1 09/2023, 09/20/2022, Additional history exists Colonoscopy 04/27/2032 [...] STANDARD Routine 11/10/2024 10:42 AM EDT Prediabetes POCT GLYCATED HEMOGLOBIN, TOTAL Routine 06/24/2024 2:19 PM EST Prediabetes HM MAMMOGRAPHY Routine 10/14/2023 HM COLONOSCOPY Routine 04/27/2022 from Last 3 Months or Most Recently Relevant to Health Maintenance Results * Lipid Panel, Standard (11/10/2024 10:42 AM EDT) Triglycerides 75 <150 mg/dL [facility] Comment:Desirable Triglyceri de: less than 150 mg/dLBorderline High Triglyceride 150-199 mg/dLHigh Triglyceride: 200-499 mg/dLVery High Triglyceride: greater than or equal to 5OO mg/dL Cholesterol 149 <200 mg/dL [facility] Comment:Desirable Cholestero l: less than 200 mg/dLBorderline High Cholesterol: 200-239 mg/dLHigh Cholesterol: greater than 239 mg/dL LDL Cholesterol Calculated 71 <100 mg/dL [facility] Comment:Desirable LDL: less than 100 mg/dLNear Optimal/Above Optimal LDL: 110- 129 mg/dLBorderline High LDL: 130-159 mg/dLHigh LDL: 160-189 mg/dLVery High LDL: greater than or equal to 190 mg/dL HDL Cholesterol 63 >40 mg/dL [facility] Comment:Desirable HDL: great er than 40 mg/dL Note: This HDL assay may give artificially low results in patients with liver disease. Blood Venous blood specimen / Unknown 11/10/2024 10:42 AM EDT 11/10/2024 11:22 AM EDT us Ciro Banks MD LAB BLOOD ORDERABLES Final Resul t [facility] [address] [place] [phone] * (ABNORMAL) POCT HGB A1C (06/24/2024 2:19 PM EST) Pathologist [facility] Hemoglobin A1C 6.1(A) 4.0 - 6.0 % QC Media Lot # [id number] Lot# Expiration Date [id number] Blood 06/24/2024 2:19 PM EST us Ciro Banks MD POINT OF CARE TEST ENTER/EDIT OR DERABLES Final Result * (ABNORMAL) Mammography (10/14/2023) Pathologist [facility] Mammogram BIRADS 2 Normal, Abnormal, BIRADS 1 , BIRADS 2 Anatomical Region Laterality Modality Other us Ciro Banks MD HEALTH MAINTENANCE Final Result * Colonoscopy (04/27/2022) Pathologist [facility] Colonoscopy performed Comment:cologuard negative [facility] Provider HEALTH MAINTENANCE Final Result from Last 3 Months or Most Recently Relevant to Health Maintenance Insurance [facility] MEDICARE ADVANTAGE HS FULL Care Teams Surgery Technician Relationship Specialty Start Date End Date Name, MD Ciro [address] [place] [phone] PCP - General Family Medicine 09/12/15
--- OUTSIDE RECORDS SUMMARY | 2025-03-08 15:21 | XMS_ITS | Clinical Summary ---
Author Organization [employer] Address [address] [place] [address] Phone Care Team Providers Care Internet E Commerce Specialist Name Role Phone Unavailable Primary Care Provider [...] asthma, unspecified whether complicated, unspecified whether persistent ([facility]) Take 1 Tablet by mouth nightly at [...] PCV 13 07/23/2017, 016 PNEUMOCOCCAL POLYSACCHARIDE PPV23 (Pneumovax 23) 09/12/2015 TDAP 05/29/2016 ZOSTER VACCINE, RECOMBINANT (SHINGRIX) [...] 80 04/21/2020 2:30 PM EDT Temperature 36.9 C (98.4 F) 04/21/2020 2:30 PM EDT Respiratory Rate 16 04/21/2020 2:30 PM EDT [...] Breast Cancer Screening (Mammogram) 04/06/2021 04/06/2019 Annual Wellness (Adult): Ind icated (All Coverage) 04/21/2021 04/21/2020, 03/26/2019 Falls Prevention 04/21/2021 04/21/2020, 03/26/2019 Hypertension Screening (#1) 04/21/2021 Diabetes Screening 04/27/2021 04/27/2020, 1 , 07/29/2019, Additional history exists Colorectal Cancer Screening 04/29/2021 FIT/gFOBT 04/29/2021 04/29/2020 Svy-DLRKB-60 ( season) 2024 021, 08/27/2020 Alcohol and Drug Screen 07/15/2024 04/21/2020, 03/26 Depression Annual Screen 07/15/2024 Imm-Influenza (#1) 2025 Lipid Screening 04/27/2025 04/27/2020, 03/24/2019 Imm-DTaP/Tdap/Td (2 - Td or Tdap) 05/29/2026 016 Imm-Pneumococcal 50+ Completed 07/23/2017, 09/12/2015, 09/12/2015 Hepatitis C Screening [...] RFL DXA Edited Result - Final * FOBT/FIT (Stool Occult Blood Test) (POCT) (04/29/2020 2:09 PM EDT) FECAL OCCULT BLOOD NEGATIVE NEGATIVE [facility] POCT FECAL OCCULT BLOOD #2 NEGATIVE NEGATIVE [facility] POCT FECAL OCCULT BLOOD #3 NEGATIVE NEGATIVE [facility] POCT Stool Stool specimen / Unknown 04/29/2020 2:09 PM EDT [facility] BODY FLUIDS AND STOOLS AMBUL ATORY Final Result Performing Organization Address City/State/[facility] Co de Phone Number [facility] POCT * LIPID PANEL (04/27/2020 10:15 AM EDT) CHOLESTEROL 184 0 - 200 mg/dL [facility] TRIGLYCERIDES 100 0 - 150 mg/dL [facility] HDL CHOLESTEROL 67 >40 mg/dL [facility] LDL CALCULATED 97 0 - 100 mg/dL [facility] TC-HDLC RATIO 2.8 0 - 4.4 mg/dL [facility] Blood Blood / Unknown 04/27/2020 1 0:15 AM EDT 04/27/2020 1:54 PM EDT Narrative [facility] 04/27/2020 2:39 PM EDT [employer] [address] [employer] - Maren Christianson MD PT ID [id number] ORD# [id number] [facility] - BLOOD DRAW Edited Result - Final [facility] [address] [place] [address], [place] [phone] * (ABNORMAL) COMPRE METAB PANEL (04/27/2020 10:15 AM EDT) GLUCOSE 110(H) 70 - 100 mg/dL [facility] Comment:Reference range appl icable to fasting specimens only BUN 15 5 - 25 mg/dL [facility] CREAT 0.78 0.5 - 1.1 mg/dL [facility] GLOMERULAR FILTRATION RATE > 60 [facility] Comment: If patient is -Bruneian, multiply result by 1.21 Chronic Kidney Disease: < 60 ml/min/1.73 square meters Kidney Failure: < 15 ml/min/1.73 square meters SODIUM 141 135 - 145 mEq/L [facility] POTASSIUM 4.5 3.5 - 5.5 mmol/L [facility] CHLORIDE 106 96 - 110 mmol/L [facility] CO2 30 21 - 32 mmol/L [facility] ANION GAP 5 3 - 11 [facility] CALCIUM 9.4 8.5 - 10.5 mg/dL [facility] TOTAL PROTEIN 7.3 6.0 - 8.0 G/dL [facility] ALBUMIN 3.8 3.2 - 5.0 G/dL [facility] BILI, TOTAL 0.7 0.0 - 1.4 mg/dL [facility] SGOT 14 10 - 42 U/L [facility] SGPT 18 10 - 60 U/L [facility] ALK PHOS 109 42 - 121 U/L [facility] Blood Blood / Unknown 04/27/2020 1 0:15 AM EDT 04/27/2020 1:54 PM EDT Narrative [facility] - 04/27/2020 2:39 PM EDT [employer], a member of [employer] [address] [address] [employer] - Maren Christianson MD PT ID [id number] ORD# [id number] [facility] - BLOOD DRAW Edited Result - Final Performing Organization Address City/[facility]/ZIP Co de Phone Number [facility] [address] [place] [address], [place] [phone] * MAMMOGRAM BI-RADS, ABSTRACTED (04/06/2019) Anatomical Region Laterality Modality Other Provider Li IMG MAMMO Final Result * HEPATITIS C ANTIBODY (03/24/2019 9:01 AM EDT) HEPATITIS C VIRUS SCREEN NEGATIVE NEGATIVE [facility] Blood specimen (specimen) Blood / Unknown 03/24/2019 9:01 AM EDT 03/24/2019 9:15 AM EDT Narrative [facility] 03/24/2019 12:50 PM EDT [employer], a member of [address] [address] [employer] - Maren Christianson MD PT ID [id number] ORD# [id number] [facility] - BLOOD DRAW Final Result Performing Organization Address [facility] Co de Phone Number [address] [address], [place] [phone] from Last 3 Months or Most Recently Relevant to Health Maintenance Insurance [employer]
--- OUTSIDE RECORDS SUMMARY | 2025-03-08 15:21 | XMS_ITS | Clinical Summary ---
Author Organization [facility] Address [address] [place] [phone] Phone Care Team Providers Care Advertising Sales Manager Name Role Phone Name, Ciro LUCAS Primary Care Provider [phone] Allergies Active Allergy Reactions Criticality Noted Date [...] 95 05/25/2024 12:10 PM EST Temperature 36.7 C (98 F) 05/25/2024 12:10 PM EST Respiratory Rate 16 [...] series) 2010 Colorectal Cancer Screening: Colonoscopy 06/24/2022 Falls Risk Assessment 06/24/2022 Medicare Annual Wellness Visit 06/24/2022 Social Influencers of Health Screening 06/24/2022 COVID-19 Vaccine ( season) 2024 05/08/2021, 09/24/2020, 08/27/2020 Depression Screening 07/15/2024 Influenza Vaccine (#1) 2025 Breast Cancer Screening 10/13/2025 10/14/19 24, [...] Procedure Name Priority Date/Time Associated Diagnosis Comments [facility] SCREENING DIGITAL Routine 10/14/2023 4:30 PM EDT Encounter for screening mammogram for malignant neoplasm of breast [facility] DEXA AXIAL SKELETON Routine 04/11/2021 2:31 PM EDT Asymptomatic menopausal state from Last 3 Months or Most Recently Relevant to Health Maintenance Results * [facility] SCREENING DIGITAL (10/14/2023 4:30 PM EDT) Anatomical Region Laterality Modality Mammography 10/14/2023 10:5 8 AM EDT Narrative 10/14/2023 4:30 PM EDT [facility] Diagnostic Imaging Department [address] [place] [address] Patient: GABBY SCANLON /Age/Sex: 1950 - 73 - F Unit#: [id number] Location/Status: SPDIMAM/REG CLI Mnemonic/Ordering Site: DIGSC/SPMAM Ordering Physician: NAME,CIRO MD [facility] Screening Digital - 10/14/23 - 1137 Report Status:Signed EXAM: [facility] Screening Digital EXAM DATE AND TIME: 10/14/2023 11:37 AM HISTORY: Screening. COMPARISON: 10/10/22, 10/06/21, 06/03/20 TECHNIQUE: Bilateral digital breast tomosynthesis was performed in the CC and MLO projections. Computer aided detection with [employer] 3D 3.1 was employed. TISSUE DENSITY: b. There are scattered areas of fibroglandular density. FINDINGS: No suspicious masses, grouped microcalcifications, or areas of architectural distortion are seen. Benign rim and secretory calcifications are again seen. Vascular calcification is present. The skin is unremarkable. IMPRESSION: Stable mammographic appearance of the breasts. No evidence of malignancy is seen. A negative mammogram in the presence of a clinically suspicious palpable abnormality does not preclude the possibility of malignancy or alter the indications for biopsy. BI-RADS: Category 2: Benign RECOMMENDATION(S): 1: Routine screening mammogram BILATERAL in 1 year. Dictating Physician: HUONG HOGUE MD Electronically Signed by: HUONG HOGUE MD Dic Date/Time: 10/14/23 1629 Sign date/Time: 10/14/23 1630 Procedure Note Huong Hogue MD - 03/02/2024 [facility] Diagnostic Imaging Department [address] [place] [address] Patient: GABBY SCANLON/Age/Sex: 1950 - 73 - F Unit#: [id number] Location/Status: SPDIMAM/REG CLI Mnemonic[facility] Order[facility] Physician: CIRO INIGUEZ MD [facility] Screening Digital - 10/14/23 - 1137 Report Status:Signed EXAM: [facility] Screening Digital EXAM DATE AND TIME: 10/14/2023 11:37 AM HISTORY: Screening. COMPARISON: 10/10/22, 10/06/21, 06/03/20 TECHNIQUE: Bilateral digital breast tomosynthesis was performed in the CCand MLO projections. Computer aided detection with [employer]Channel 3D 3.1was employed. TISSUE DENSITY: b. There [...] Date/Time: 10/14/23 1629 Sign date/Time: 10/14/23 1630 us Ciro Iniguez MD IMG BI PROCEDURES Final Result * [facility] DEXA AXIAL SKELETON (04/11/2021 2:31 PM EDT) Anatomical Region Laterality Modality Mammography 04/11/2021 10:1 1 AM EDT Narrative 04/11/2021 2:31 PM EDT [facility] Diagnostic Imaging Department [address] [place] [id number] Patient: GABBY SCANLON /Age/Sex: 1950 - 70 - F Unit#: [id number] Location/Status: SPDIMAM/REG CLI Mnemonic/Ordering Site: MAMDEXAAX/SPMAM Ordering Physician: TEA CHILDRESS BRAIDED RUG MAKER [facility] Dexa Axial Skeleton - 04/11/21 - 1111 HISTORY: Post menopausal woman with hormone depletion for screening bone densitometry. The patient is on calcium supplement with Vitamin D. TECHNIQUE: Bone densitometry is performed utilizing dual energy x-ray absorptiometry (DEXA) in the [employer] unit. The lumbar spine is evaluated in [...] bone mineralization in the right proximal femur. [id number] A report detailing these results has been enclosed. Dictating Physician: ROGER KING MD Electronically Signed by: ROGER IKNG MD Dic Date/Time: 04/11/21 1429 Sign date/Time: 04/11/21 1431 Procedure Note Roger King MD - 07/11/2022 [facility] Diagnostic Imaging Department [address] [place] [id number] Patient: SCANLONGABBY VALLES D.O.B./Age/Sex: 1950 - 70 - F Unit#: [id number] [facility] Ordering Physician: TEA CHILDRESS BRAIDED RUG MAKER [facility] Dexa Axial Skeleton - 04/11/21 - 1111 HISTORY: Post menopausal woman with hormone depletion for screening bone densitometry. The patient is on calcium supplement with Vitamin D. TECHNIQUE: Bone densitometry is performed utilizing dual energy x-ray absorptiometry (DEXA) in the [employer] unit. The lumbar spine isevaluated in the [...] increased bone mineralization in the rightproximal femur. [id number] A report detailing these results has been enclosed. Dictating Physician: ROGER KING MD Electronically Signed by: ROGER KING MD Dic Date/Time: 04/11/21 1429 Sign date/Time: 04/11/21 1431 Tea Childress BRAIDED RUG MAKER IMG BI PROCEDURES Final Result from Last 3 Months or Most Recently Relevant to Health Maintenance Insurance [employer] MEDICARE Care Teams Advertising Sales Manager Relationship Specialty Start Date End Date Name, MD Ciro [address] [place], [place] PCP - General Internal Medicine 12/18/11
[2025-03-08 16:26] LABS: Hemoglobin A1C 156.9116 umol/L; Total Hemoglobin (HGBA1C) 3459.5257 umol/L
[2025-03-08 16:29] LABS: Anion Gap 13 (12-20); Blood Urea Nitrogen 17 mg/dL (9-16); Calcium 9.5 mg/dL (8.4-10.2); Carbon Dioxide 26 mmol/L (22-29); Chloride 106 mmol/L (96-108); Estimated Glomerular Filt Rate > 60; Potassium 4.1 mmol/L (3.3-5.1); Sodium 141 mmol/L (135-145)
[2025-03-08 16:57] LABS: Vitamin B12 306 pg/mL (200-900)
== END 2025-03-08 13:56 | disposition home or self-care (01) ==
LOC: HO.HHCL 13:55
PROVIDERS: PCP Internal Medicine Geriatric Medicine; Visit Provider Internal Medicine Geriatric Medicine
DX: R73.03 Prediabetes (principal)
CPT/HCPCS: 36415; 80048; 82607; 83036

== ENCOUNTER 2025-07-05 16:05 | Outpatient (REF) | payer MEDICARE, MEDICAID, SELFPAY ==
--- OUTSIDE RECORDS SUMMARY | 2025-07-05 14:20 | XMS_ITS | Encounter Summary ---
Author Organization [employer] Address [address] [facility] 7t [place] [address] Care Team Providers Care Mcat Tutor Name Role Phone Name, Ciro LUCAS Primary Care Provider [phone] Reason for Visit * Reason Comments UTI Encounter Details Date Type Department Care Team ([facility] Contact Info) Description 07/05/2025 2:20 PM EST Office Visit [facility] [address], [place] [phone] Encounter for screening examination for sexually transmitted infection (Primary Dx); UTI symptoms Social History Tobacco Use Types Packs/Day Years [...] Sign Reading Time Taken Comments Blood Pressure 155/78 07/05/2025 2:22 PM EST Pulse 82 07/05/2025 2:22 PM EST Temperature 36.7 C (98 F) 07/05/2025 2:22 PM EST Respiratory Rate 16 07/05/2025 2:22 PM EST Oxygen Saturation 97% 07/05/2025 2:22 PM EST Inhaled Oxygen Concentration - - Weight 83 kg (183 lb) 07/05/2025 2:22 PM EST Height - - Body Mass Index 33.47 03/08/2025 1:23 PM EDT documented in this encounter Plan of Treatment Upcoming Encounters Date Type Department Care Team (Late st Contact Info) Description 09/28/2025 1:45 PM EDT Office Visit [facility] [address] [place] [phone] Name, MD Ciro [address] [place] [address] Scheduled Orders Name Type Priority Associated Diagnoses Orde r Schedule Culture, Urine, Routine Microbiology Routine UTI symptoms Ordered: 07/05/2025 Syphilis Screen Lab Routine Encounter for screening examination for sexually transmitted infection Expected: 07/05/2025, Expires: 07/05/2026 HIV-1/2 Antigen and Antibodies, Fourth Generation, with Reflexes Lab Routine Encounter for screening examination for sexually transmitted infection Expected: 07/05/2025 (Approximate), Expires: 07/05/2026 Hepatitis C Antibody with Reflex to HCV, RNA, Quantitative, Real-Time PCR Lab Routine Encounter for screening examination for sexually transmitted infection Expected: 07/05/2025, Expires: 07/05/2026 Hepatitis B surface antigen, EIA Lab Routine Encounter for screening examination for sexually transmitted infection Expected: 07/05/2025 (Approximate), Expires: 07/05/2026 Hepatitis B Core Antibody, Total Lab Routine Encounter for screening examination for sexually transmitted infection Expected: 07/05/2025 (Approximate), Expires: 07/05/2026 Hepatitis B Surface Antibody, Qualitative Lab Routine Encounter for screening examination for sexually transmitted infection Expected: 07/05/2025 (Approximate), Expires: 07/05/2026 Chlamydia/N. Gonorrhoeae RNA, TMA, Urogenitial Microbiology Routine Encounter for screening examination for sexually transmitted infection Ordered: 07/05/2025 documented as of this encounter Procedures Procedure Name Priority Date/Time Associated Diagnosis Comments POCT URINALYSIS DIPSTICK Routine 07/05/2025 2:07 PM EST UTI symptoms documented in this encounter Results * (ABNORMAL) POCT urinalysis dipstick manually resulted (CPT 78008) (07/05/2025 2:07 PM EST) Color, UA Yellow Clarity, UA Clear Glucose, UA Negative Bilirubin, UA Negative Ketones, UA Negative Spec Grav, UA 1.015 Blood, UA Positive(A) Negative, None Detected Comment:Trace pH, UA 6.0 Protein, UA Negative Urobilinogen, UA 2.0 Leukocytes, UA Few 15(A) Negative, Rare, Trace, 1+ (17), 2+ (35), 3+ (70), Trace (15) Comment:Small Nitrite, UA Negative Negative, None Detected Appearance, UA OK Urine (Urine, Random) 07/05/2025 2:07 PM EST [facility] POINT OF CARE TEST ENTER/EDIT ORDERABLES Final Result documented in this encounter Visit Diagnoses Diagnosis Encounter for screening examination for sexually transmitted infection- Primary UTI symptoms documented in this encounter Additional Health Concerns Assessment Noted Time PHQ-9 Depression Total Score: 1 03/08/20 25 1:25 PM EDT documented as of this encounter Care Teams Mcat Tutor Relationship Specialty Start Date End Date Name, MD Ciro [address] [place] [address] PCP - General Family Medicine 09/12/15 documented as of this encounter
--- OUTSIDE RECORDS SUMMARY | 2025-07-05 18:44 | XMS_ITS | Encounter Summary ---
Author Organization [employer] Address 75 [facility] 7t [place] [address] Care Team Providers Care Wheat Grower Name Role Phone Name, Ciro LUCAS Primary Care Provider [phone] Encounter Details Date Type Department Care Team (Latest Contact Info) Description 07/05/2025 Travel Social History Tobacco Use Types Packs/Day [...] Description 09/28/2025 1:45 PM EDT Office Visit [facility] [address] [place] [address] Name, MD Ciro [address] [place] [phone] documented as of this encounter Visit Diagnoses Not on filedocumented in this encounter Additional Health Concerns Assessment Noted Time PHQ-9 Depression Total Score: 1 03/08/20 25 1:25 PM EDT documented as of this encounter Care Teams Wheat Grower Relationship Specialty Start Date End Date Name, MD Ciro [address] [place] [address] PCP - General Family Medicine 09/12/15 documented as of this encounter
--- OUTSIDE RECORDS SUMMARY | 2025-07-05 18:44 | XMS_ITS | Encounter Summary ---
Author Organization [employer] Address [address] [place] [address] 7t [place] [address] Care Team Providers Care Product Manufacturing Professional Name Role Phone NameCiro MD Primary Care Provider [phone] Encounter Details Date Type Department Care Team ([facility] Contact Info) Description 12/14/2022 Abstract [facility] [address] [place] [phone] NameCiro MD [address] [place] [address] [phone] Social History Tobacco Use Types Packs/Day Years [...] Department Care Team (Late Contact Info) Description 09/28/2025 1:45 PM EDT Office Visit [facility] [address] [place] [address] [phone] NameCiro MD [address] [place] [phone] documented as of this encounter Visit Diagnoses Not on filedocumented in this encounter Care Teams Product Manufacturing Professional Relationship Specialty Start Date End Date NameCiro MD [address] [place] [address] PCP - General Family Medicine 09/12/15 documented as of this encounter
--- OUTSIDE RECORDS SUMMARY | 2025-07-05 18:44 | XMS_ITS | Encounter Summary ---
Author Organization [employer] Address 75 [facility] 7t [place] [address] Care Team Providers Care Printing Engineer Name Role Phone Name, Ciro LUCAS Primary Care Provider [phone] Reason for Visit * Reason Comments Med Change Request Encounter Details Date Type Department Care Team ([facility] Contact Info) Description 06/07/2025 Refill [facility] [address] [place], [place] [phone] Name, MD Ciro [address] [place], [place] [phone] Social History Tobacco Use Types Packs/Day Years [...] Description 09/28/2025 1:45 PM EDT Office Visit [facility] [address] [place] [phone] Name, MD Ciro [address] [place] [address] documented as of this encounter Visit Diagnoses Not on filedocumented in this encounter Additional Health Concerns Assessment Noted Time PHQ-9 Depression Total Score: 1 03/08/20 25 1:25 PM EDT documented as of this encounter Care Teams Printing Engineer Relationship Specialty Start Date End Date NameCiro MD [address] [place] [address] PCP - General Family Medicine 09/12/15 documented as of this encounter
--- OUTSIDE RECORDS SUMMARY | 2025-07-05 18:44 | XMS_ITS | Encounter Summary ---
Author Organization [employer] Address [address] [facility] 7t [place] [address] Care Team Providers Care Surtass Analyst Name Role Phone Name, Ciro LUCAS Primary Care Provider [phone] Reason for Visit * Reason Comments Med Refill Encounter Details Date Type Department Care Team ([facility] Contact Info) Description 07/01/2025 Refill [facility] [address] [place], [place] [phone] Name, MD Ciro [address] [place], [place] [phone] Social History Tobacco Use Types Packs/Day Years [...] Description 09/28/2025 1:45 PM EDT Office Visit [facility] [address] [place] [address] Name, MD Ciro [address] [place] [phone] documented as of this encounter Visit Diagnoses Not on filedocumented in this encounter Additional Health Concerns Assessment Noted Time PHQ-9 Depression Total Score: 1 03/08/20 25 1:25 PM EDT documented as of this encounter Care Teams Surtass Analyst Relationship Specialty Start Date End Date NameCiro MD [address] [place] [phone] PCP - General Family Medicine 09/12/15 documented as of this encounter
--- OUTSIDE RECORDS SUMMARY | 2025-07-05 18:44 | XMS_ITS | Clinical Summary ---
Author Organization [facility] Address [address] [place] [phone] Phone Care Team Providers Care Senior Investment Manager Name Role Phone Name, Ciro LUCAS Primary Care Provider [phone] Allergies Active Allergy Reactions Criticality Noted Date [...] = 0.6 oz pur e alcohol) Comments No Sex and Gender Information Value Date Recorded Sex Assigned at Female 05/25/2024 2:01 PM EST Legal Sex Female 9:05 AM EST Gender Identity Female 05/25/2024 2:01 PM EST Sexual Orientation Straight 05/25/2024 2: 01 PM EST Obstetrics History Para Term AB IAB SAB Ectopic Multiple Livin g Live Births 3 Last Filed Vital Signs Vital Sign Reading Time Taken Comments Blood Pressure 124/60 05/25/2024 12:10 PM EST Pulse 95 05/25/2024 12:10 PM EST Temperature 36.7 C (98 F) 05/25/2024 12:10 PM EST Respiratory Rate 16 05/25/2024 12:10 PM EST Oxygen Saturation 100% 05/25/2024 12:10 PM EST Inhaled Oxygen Concentration - - Weight 78 kg (172 lb) 03/16/2025 2:58 PM EDT Height 157.5 cm (5' 2 ) 03/16/2025 2:58 PM EDT Body Mass Index 31.46 03/16/2025 2:58 PM EDT Plan of Treatment Health Maintenance Due Date Last Done Comments Colorectal Cancer Screening: Colonoscopy 1950 RSV Immunization Adult Patients (1 - Risk 50-74 years 1-dose series) 2000 Zoster Vaccines (1 of 2) 2000 Falls Risk Assessment 06/24/2022 Medicare Annual Wellness Visit 06/24/2022 Social Influencers of Health Screening 06/24/2022 Depression Screening 07/15/2024 COVID-19 Vaccine ( season) 2025 05/08/2021, 09/24/2020, 08/27/2020 Influenza Vaccine (#1) 2025 DTaP,Tdap,and Td Vaccines (2 - Td or Tdap) 05/29/2026 05/29/2016 Breast Cancer Screening 03/16/2027 03/16/20, 10/14/2023, 10/11/2022, Additional history exists Cholesterol Screening (Lipid Panel) 11/10/2029 11/10/2024, 11/25/2023, 04/27/2020, Additional history exists Osteoporosis Screening (Bone [...] Procedure Name Priority Date/Time Associated Diagnosis Comments MG MAMMO DIGITAL SCREENING W JOHN BILAT Routine 03/16/2025 3:12 PM EDT Encounter for screening mammogram for malignant neoplasm of breast [facility]IN[facility] DEXA AXIAL SKELETON Routine 04/11/2021 2:31 PM EDT Asymptomatic menopausal state from Last 3 Months or Most Recently Relevant to Health Maintenance Results * MG Mammo Digital Screening w John bilat (03/16/2025 3:12 PM EDT) Anatomical Region Laterality Modality Breast Bilateral Mammography 03/17/2025 9:01 AM EDT Impressions 03/17/2025 9:11 AM EDT No mammographic evidence of malignancy. No suspicious interval change. A negative mammogram in the presence of a clinically suspicious palpable abnormality does not preclude the possibility of malignancy or alter the indications for biopsy. ASSESSMENT: BI-RADS 1: NEGATIVE RECOMMENDATION(S): 1: Routine screening mammogram BILATERAL in 1 year. [facility] [address], [address] -------- FINAL REPORT -------- Dictated By: Jesus Monreal Dictated Date: 03/17/2025 09:01 ET Assigned Physician: Jesus Monreal Reviewed and Electronically Signed By: Jesus Monreal Signed Date: 03/17/2025 09:11 ET Workstation ID: [id number] Transcribed By: Self Edit Transcribed Date: 03/17/2025 09:01 ET Narrative 03/17/2025 9:11 AM EDT EXAM: SCREENING MAMMOGRAPHY, BILATERAL HISTORY: SCREENING. No additional history. COMPARISON: 10/14/23, 10/10/22, 10/06/21, 06/03/20 TECHNIQUE: Synthesized CC and MLO projections of each breast. Tomosynthesis of each breast in the CC and MLO projections. ADDITIONAL IMAGING: None Computer-aided detection was employed with the [facility] AI 3-D. TISSUE DENSITY: There are scattered areas of fibroglandular density. (BI-RADS category B) FINDINGS: RIGHT BREAST: No suspicious mass. No suspicious calcification. No distortion. No additional suspicious right breast findings LEFT BREAST: No suspicious mass. No suspicious calcification. No distortion. No additional suspicious left breast findings Procedure Note Jesus Monreal MD - 03/17/2025 EXAM: SCREENING MAMMOGRAPHY, BILATERAL HISTORY: SCREENING. No additional history. COMPARISON: 10/14/23, 10/10/22, 10/06/21, 06/03/20 TECHNIQUE: Synthesized CC and MLO projections of each breast.Tomosynthesis of each breast in the CC and MLO projections. ADDITIONAL IMAGING: None Computer-aided detection was employed with the [employer] AI 3-D. TISSUE DENSITY: There are scattered areas of fibroglandular density.(BI-RADS category B) FINDINGS: RIGHT BREAST: No suspicious mass. No suspicious calcification. No distortion. Noadditional suspicious right breast findings LEFT BREAST: No suspicious mass. No suspicious calcification. No distortion. Noadditional suspicious left breast findings IMPRESSION: No mammographic evidence of malignancy. No suspicious interval change. A negative mammogram in the presence of a clinically suspicious palpableabnormality does not preclude the possibility of malignancy or alter theindications for biopsy. ASSESSMENT: BI-RADS 1: NEGATIVE RECOMMENDATION(S): 1: Routine screening mammogram BILATERAL in 1 year. [facility]amm[facility] location[facility] [address], [address] -------- FINAL REPORT -------- Dictated By: Jesus Monreal Dictated Date: 03/17/2025 09:01 ET Assigned Physician: Jesus Monreal Reviewed and Electronically Signed By: Jesus Monreal Signed Date: 03/17/2025 09:11 ET Workstation ID: [id number] Transcribed By: Self Edit Transcribed Date: 03/17/2025 09:01 ET us Ciro Name [email or web address] BI PROCEDURES Final Result * [facility] DEXA AXIAL SKELETON (04/11/2021 2:31 PM EDT) Anatomical Region Laterality Modality Mammography 04/11/2021 10:1 1 AM EDT Narrative 04/11/2021 2:31 PM EDT [facility] Diagnostic Imaging Department [address] [place] [address] Patient: REGINALDOGABBY./Age/Sex: 1950 - 70 - F Unit#: [id number] Location/Status: [facility]/REG CLI Mnemonic[facility] Ordering Physician: TEA CHILDRESS INDUSTRIAL SOCIOLOGIST [facility] Dexa Axial Skeleton - 04/11/21 - 1111 HISTORY: Post menopausal woman with hormone depletion for screening bone densitometry. The patient is on calcium supplement with Vitamin D. TECHNIQUE: Bone densitometry is performed utilizing dual energy x-ray absorptiometry (DEXA) in the RuffWire unit. The lumbar spine is evaluated in [...] bone mineralization in the right proximal femur. [id number] A report detailing these results has been enclosed. Dictating Physician: ROGER KING MD Electronically Signed by: ROGER KING MD Dic Date/Time: 04/11/21 1429 Sign date/Time: 04/11/21 1431 Procedure Note Roger King MD - 07/11/2022 [facility] Diagnostic Imaging Department [address] [place] [address] Patient: GABBY SCANLON D.O.B./Age/Sex: 1950 - 70 - F Unit#: [id number] Location/Status: [facility]/REG CLI Mnemonic[facility] Ordering Physician: TEA CHILDRESS INDUSTRIAL SOCIOLOGIST [facility] Dexa Axial Skeleton - 04/11/21 - 1111 HISTORY: Post menopausal woman with hormone depletion for screening bone densitometry. The patient is on calcium supplement with Vitamin D. TECHNIQUE: Bone densitometry is performed utilizing dual energy x-ray absorptiometry (DEXA) in the RuffWire unit. The lumbar spine isevaluated in the [...] increased bone mineralization in the rightproximal femur. [id number] A report detailing these results has been enclosed. Dictating Physician: ROGER KING MD Electronically Signed by: ROGER KING MD Dic Date/Time: 04/11/21 1429 Sign date/Time: 04/11/21 1431 Tea Childress NP IMG BI PROCEDURES Final Result from Last 3 Months or Most Recently Relevant to Health Maintenance Insurance [employer] MEDICARE [place]ICAID - [place] Care Teams Senior Investment Manager Relationship Specialty Start Date End Date Name, MD Ciro [address] [place], [place] PCP - General Internal Medicine 12/18/11
--- OUTSIDE RECORDS SUMMARY | 2025-07-05 18:44 | XMS_ITS | Encounter Summary ---
Author Organization [employer] Address [address] [facility] 7t [place] [address] Care Team Providers Care High School Tutor Name Role Phone Name, Ciro LUCAS Primary Care Provider [phone] Reason for Visit * Reason Onset Date Comments Results 02/11/2023 Encounter Details Date Type Department Care Team ([facility] st Contact Info) Description 02/11/2023 Telephone [facility] [address] [place], [place] [phone] Name, MD Ciro [address] [place], [place] [phone] Results Social History Tobacco Use Types Packs/Day [...] MRI results scanned into pt [facility] from [facility]. Please review and advise as PCP if off. * Telephone Encounter - Sarika Mayen - 02/11/2023 11:05 AM EDT Tc from pt requesting results on MRI. Please contact pt at [phone] (Paraguayan) documented in this encounter Plan of Treatment Upcoming Encounters Date Type Department Care Team (Late st Contact Info) Description 09/28/2025 1:45 PM EDT Office Visit [facility] [address] [place] [phone] Name, MD Crio [address] [place] [phone] documented as of this encounter Visit Diagnoses Not on filedocumented in this encounter Care Teams High School Tutor Relationship Specialty Start Date End Date Ciro Banks MD [address] [place] [address] PCP - General Family Medicine 09/12/15 documented as of this encounter
--- OUTSIDE RECORDS SUMMARY | 2025-07-05 18:45 | XMS_ITS | Encounter Summary ---
Author Organization [employer] Address [address] [facility] 7t [place] [address] Care Team Providers Care Security Systems Installer Name Role Phone Name, Ciro LUCAS Primary Care Provider [phone] Reason for Visit * Reason Comments Med Refill Encounter Details Date Type Department Care Team ([facility] st Contact Info) Description 07/26/2024 Refill [facility] [address] [place], [place] [phone] Name, MD Ciro [address] [place], [place] [phone] Social History Tobacco Use Types Packs/Day Years [...] Description 09/28/2025 1:45 PM EDT Office Visit [facility] [address] [place] [phone] Name, MD Ciro [address] [place] [phone] documented as of this encounter Visit Diagnoses Not on filedocumented in this encounter Additional Health Concerns Assessment Noted Time PHQ-9 Depression Total Score: 1 06/24/20 24 2:43 PM EST documented as of this encounter Care Teams Security Systems Installer Relationship Specialty Start Date End Date NameCiro MD [address] [place] [phone] PCP - General Family Medicine 09/12/15 documented as of this encounter
--- OUTSIDE RECORDS SUMMARY | 2025-07-05 18:45 | XMS_ITS | Clinical Summary ---
Author Organization [employer] Address [address] [facility] [address] [place] [address] Care Team Providers Care Stogy Roller Name Role Phone Name, Ciro LUCAS Primary Care Provider [phone] Allergies Active Allergy Reactions Criticality Noted Date Comments Aspirin Itching Medium 11/01/2015 Medications clotrimazole-be tamethasone (Lotrisone) cream Apply once a day at bedtime to the affected skin 45 g 3 06/25/20 23 Active cholecalciferol (D3-1000) 25 MCG (1000 UT) tablet TAKE 1 TABLET BY MOUTH EVERY DAY 90 tablet 1 04/28/20 24 Active albuterol 108 (90 Base) MCG/ACT inhaler Inhale 2 puffs Every 4-6 hours as needed for wheezing or shortness of breath. 18 g 11 06/24/20 24 Active metoprolol tartrate (Lopressor) 25 MG tablet TOME 1 TABLETA POR VIA ORAL DOS VECES AL EVA 180 tablet 3 09/22/19 25 Active omeprazole OTC (PriLOSEC OTC) 20 MG EC tabletIndicatio ns:Non-cardiac chest pain Take 1 tablet (20 mg) [...] 1 each 11 03/08/20 25 026 Active montelukast (Singulair) 10 MG tabletIndicatio ns:Asthma, unspecified asthma severity, unspecified whether complicated, unspecified whether persistent TOME 1 TABLETA POR VIA ORAL TODOS [place] COLÓN AL ACOSTARSE 90 tablet 1 03/17/20 25 Active gabapentin (Neurontin) 100 MG capsule TAKE 1 CAPSULE BY MOUTH 3 TIMES DAILY 90 capsule 2 05/10/20 25 Active metFORMIN (Glucophage) 500 MG tablet TAKE 1 TABLET BY MOUTH WITH BREAKFAST AND 1 TABLET WITH EVENING MEAL 180 tablet 3 06/15/20 25 Active atorvastatin (Lipitor) 40 MG tablet TAKE 1 TABLET BY MOUTH EVERY MORNING 90 tablet 3 07/01/20 25 Active metFORMIN (Glucophage) 500 MG tablet TAKE 1 TABLET BY MOUTH WITH BREAKFAST AND EVENING MEAL 180 tablet 3 07/14/20 24 025 Discontinued atorvastatin (Lipitor) 40 MG tablet TAKE 1 TABLET BY MOUTH EVERY MORNING 90 tablet 3 08/10/19 25 025 Discontinued Active Problems Problem Noted Date Diagnosed Date Arthritis 03/12/2023 Overview (03/12/2023): hands/neck Asthma 03/12/2023 Back pain 03/12/2023 Low vitamin D level 07/13/2022 Calcification of coronary artery 07/13/2022 Pulmonary nodule 07/13/2022 Overview (09/18/2022): CT 2021 showed: Intrathoracic lymph nodes calcification and calcified pulmonary nodules perhaps sequela of remote granulomatous infection. Negative Quantiferon for TB Follows [facility] Asymptomatic No further work up recommended Osteopenia of multiple sites 04/19/2019 Prediabetes 03/24/2019 Vitamin D deficiency 03/24/2019 Depressive disorder 03/14/2018 Constipation 07/23/2017 Low back pain radiating to left leg 07/23/2017 Hip pain 02/22/2017 Peripheral venous insufficiency 02/29/2016 Restless legs 11/01/2015 Obesity 11/01/2015 Mild intermittent asthma 11/01/2015 Osteoarthritis of knee 11/01/2015 Encounters Date Type Department Care Team Description 07/05/2025 2:20 PM EST Office Visit [facility] [address] [place] [phone] Encounter for screening examination for sexually transmitted infection (Primary Dx); UTI symptoms 07/05/2025 Travel 07/01/2025 Refill [facility] [address] [place] [address] NameCiro MD 06/25/2025 Telephone [facility] [address] [facility] [place] [address] Anthony Ureña YA dec recalls 06/15/2025 Refill [facility] [address] [place] [address] NameCiro MD 06/07/2025 Refill [facility] [address] [place] [address] NameCiro MD 05/08/2025 Refill [facility] [address] [place] [address] NameCiro MD from Last 3 Months Immunizations Immunization Administration [...] (183 lb) 07/05/2025 2:22 PM EST Height 157.5 cm (5' 2 ) 03/08/2025 1:23 PM EDT Body Mass Index 33.47 03/08/2025 1:23 PM EDT Plan of Treatment Upcoming Encounters Date Type Department Care Team (Late st Contact Info) Description 09/28/2025 1:45 PM EDT Office Visit [facility] [address] [place] [phone] Name, MD Ciro [address] [place] [address] Health Maintenance Due Date Last Done Comments CT Colonography 1950 FIT DNA/Cologuard 1950 FIT 1950 FOBT 1950 Sigmoidoscopy 1950 Hepatitis C Screening 1968 RSV Patients and Patients Aged 60 years or older (1 - Risk 50-74 years 1-dose series) 2000 Zoster Vaccines (1 of 2) 2000 COVID-19 Vaccine (4 - season) 2025 05/08/2021, 09/24/2020, 08/27/2020 Influenza Vaccine (#1) 2025 Alcohol/Substance Use Screening 03/08/2026 03/08/2025 Depression Screening 03/08/2026 03/08/2025, 03/08/20 Diabetes: Hemoglobin A1C 03/08/2026 025, 06/24/2024, 09/20/2022, Additional history exists SDOH Screening 03/08/2026 03/08/2025 Mammogram 03/16/2026 03/16/2025, 090 08/2024, 10/14/2023, Additional history exists DTaP/Tdap/Td Vaccines (2 - Td or Tdap) 05/29/2026 05/29/2016 Tobacco Screening 07/05/2026 07/05/2025 Lipid Panel 11/10/2029 11/10/2024, 05/1 09/2023, 09/20/2022, [...] Routine 07/05/2025 2:07 PM EST UTI symptoms HEMOGLOBIN A1C Routine 03/08/2025 2:04 PM EDT Prediabetes LIPID PANEL, STANDARD Routine 11/10/2024 10:42 AM EDT Prediabetes HM MAMMOGRAPHY Routine 10/14/2023 HM COLONOSCOPY Routine 04/27/2022 from Last 3 Months or Most Recently Relevant to Health Maintenance Results * (ABNORMAL) POCT urinalysis dipstick manually resulted (CPT 16507) (07/05/2025 2:07 PM EST) Color, UA Yellow [...] Urine (Urine, Random) 07/05/2025 2:07 PM EST [facility] POINT OF CARE TEST ENTER/EDIT ORDERABLES Final Result * (ABNORMAL) Hemoglobin A1c (03/08/2025 2:04 PM EDT) Hemoglobin A1c 6.3(H) <6.0 % [facility] Comment:Hemoglobin A1C Refer ence Range Adults: 4.8 - 6.0 % Non diabetic: < 6.0 % Goal: < 7.0 %Additional Action Suggested: > 8.0 %Note: Hemoglobin A1c results are invalid for patients with abnormal amounts of HbF. Blood transfusions may impact the HbA1c concentration in the patient sample. Estimated Average Glucose 134 mg/dL [facility] Comment:eAG = Estimated ave rage glucose which is %A1C expressed asaverage glucose, using the formula of the [id number] Glucose study (ADAG), Diabetes Care, Vol.31,#8,Feb. 2007 Blood Venous blood specimen / Unknown 03/08/2025 2:04 PM EDT 03/08/2025 4:05 PM EDT Ciro Banks MD LAB BLOOD ORDERABLES Final Resul t Performing Organization Address [facility] Co de Phone Number [facility] [address] [place] [phone] * Lipid Panel, Standard (11/10/2024 10:42 AM EDT) Triglycerides 75 <150 mg/dL [facility] Comment:Desirable Triglyceri de: less than 150 mg/dLBorderline High Triglyceride 150-199 mg/dLHigh Triglyceride: 200-499 mg/dLVery High Triglyceride: greater than or equal to 5OO mg/dL Cholesterol 149 <200 mg/dL [facility] Comment:Desirable Cholestero l: less than 200 mg/dLBorderline High Cholesterol: 200-239 mg/dLHigh Cholesterol: greater than 239 mg/dL LDL Cholesterol Calculated 71 <100 mg/dL [facility] Comment:Desirable LDL: less than 100 mg/dLNear Optimal/Above Optimal LDL: 110- 129 mg/dLBorderline High LDL: 130-159 mg/dLHigh LDL: 160-189 mg/dLVery High LDL: greater than or equal to 190 mg/dL HDL Cholesterol 63 >40 mg/dL [facility] Comment:Desirable HDL: great er than 40 mg/dL Note: This HDL assay may give artificially low results in patients with liver disease. Blood Venous blood specimen / Unknown 11/10/2024 10:42 AM EDT 11/10/2024 11:22 AM EDT us Ciro Banks MD LAB BLOOD ORDERABLES Final Resul t Performing Organization Address City/[facility]/ZIP Co de Phone Number [facility] [address] [place] [phone] * (ABNORMAL) Mammography (10/14/2023) Mammogram BIRADS 2 Normal, Abnormal, BIRADS 1 , BIRADS 2 Anatomical Region Laterality Modality Other us Ciro Name HEALTH MAINTENANCE Final Result * Colonoscopy (04/27/2022) Colonoscopy performed Comment:cologuard negative us Historical Provider HEALTH MAINTENANCE Final Result from Last 3 Months or Most Recently Relevant to Health Maintenance Insurance [employer] MEDICARE ADVANTAGE HMO [facility] Care Teams Stogy Roller Relationship Specialty Start Date End Date Name, MD Ciro [address] [place] [phone] PCP - General Family Medicine 09/12/15
[2025-07-05 23:19] LABS: CT PCR NOT DETECTED (Not Detect.); NG PCR NOT DETECTED (Not Detect.)
== END 2025-07-05 16:06 | disposition home or self-care (01) ==
LOC: HO.HHCLNP 16:05
PROVIDERS: Visit Provider Registered Nurse
DX: Z20.2 Contact with and (suspected) exposure to infections with a predominantly sexual mode of transmission (principal); R39.9 Unspecified symptoms and signs involving the genitourinary system
CPT/HCPCS: 87086; 87491; 87591